=== PATIENT | male | born 1960 | race Caucasian/White ===

== ENCOUNTER 2016-11-01 09:23 | Emergency (ER) | payer MEDICAID, OTHER ==
[2016-11-01 09:45] VITALS: BP 146/84; PULSE 69; RESP 18; TEMP 97.7; O2SAT 98
--- NOTE | 2016-11-01 10:46 | C.PDOC ---
History Of Present Illness 56 y/o male presents to ED with complaints of right ear pain for 8 days. Patient also reports muffled hearing and reports limited relief with OTC ear drops. Patient denies recent swimming, fever, chills, n/v/d or any other complaints at this time. R EAR PAIN X 8 DAYS. MUFFLED HEARING. LIMITED RELIEF W OTC EAR DROPS. NO FEVER, RECENT SWIMMING OTHER ASSOC SX. EXAM NAD HEENT R EAR +CANAL SWELL W MIN LOCAL ERYTHEMA +CERUMEN IMPACT; L EAR MOD AMOUNT CERUMEN, CANAL WNL. TM WNL REMAINDER NEG Time Seen by Provider: 11/01/16 10:38 History Per: Patient History/Exam Limitations: None Onset/Duration Of Symptoms: Days Current Symptoms Are (Timing): Still Present Past Medical History Reviewed: Historical Data, Nursing Documentation, Vital Signs Vital Signs: Last Vital Signs Temp 97.7 F 11/01/16 09:30 Pulse 69 11/01/16 09:30 Resp 18 11/01/16 09:30 BP 146/84 11/01/16 09:30 Pulse Ox 98 11/01/16 11:16 - Medical History PMH: Diabetes (NIDDM), Gastritis, HTN, Hypercholesterolemia - [facility] Procedures CATARAC PHACOEMULS/ASPIR (10/10/14) DRAINAGE OF LEFT FOOT SKIN, EXTERNAL APPROACH (04/19/15) EXCISION OF L FOOT SUBCU/FASCIA, OPEN APPROACH (04/19/15) EXCISION OF LEFT FOOT SKIN, EXTERNAL APPROACH (04/19/15) EXCISION OF STOMACH, ENDO, DIAGN (04/19/15) INSERT LENS AT CATAR EXT (10/10/14) INSERTION OF INFUSION DEV INTO SUP VENA CAVA, PERC APPROACH (04/19/15) NONEXCIS DEBRID OF WOUND, INFECT, OR BURN (03/07/14) OTHER SKIN & SUBQ I D (03/07/14) Family History: States: No Known Family Hx - Social History Hx Tobacco Use: Yes Hx Alcohol Use: No Hx Substance Use: No - Immunization History Hx Tetanus Toxoid Vaccination: No Hx Influenza Vaccination: No Hx Pneumococcal Vaccination: No Review Of Systems Except As Marked, All Systems Reviewed And Found Negative. Constitutional: Negative for: Fever, Chills Gastrointestinal: Negative for: Nausea, Vomiting, Diarrhea Skin: Negative for: Rash Neurological: Negative for: Weakness, Numbness Physical Exam - Physical Exam Appears: No Acute Distress Skin: Normal Color, Warm, Dry, No Rash Head: Atraumatic, Normacephalic Eye(s): bilateral: Normal Inspection, EOMI Ear(s): Bilateral: Other (Right ear canal swelling w/minimal local erythema, + ceurmen impact; Left ear moderate amount cerumen, Canal and TM WNL ) Oral Mucosa: Moist Throat: Normal, No Erythema Neck: Normal ROM, Supple Cardiovascular: Rhythm Regular Respiratory: Normal Breath Sounds, No Rales, No Rhonchi, No Wheezing Gastrointestinal/Abdominal: Soft, No Tenderness, No Guarding, No Rebound Neurological/Psych: Oriented x3, Normal Speech, Normal Cognition, Normal Motor, Normal Sensation ED Course And Treatment O2 Sat by Pulse Oximetry: 98 (RA) Pulse Ox Interpretation: Normal Disposition Counseled Patient/Family Regarding: Diagnosis, Need For Followup, Rx Given - Disposition Referrals: [facility] [Outside] [facility] [Outside] Disposition: HOME/ ROUTINE Disposition Time: 10:45 Condition: IMPROVED Instructions: Otitis Externa (ED), Cerumen Impaction (ED) Forms: [employer] ([place]) Print Language: DANISH - Clinical Impression Clinical Impression: Otitis externa, Cerumen impaction - Scribe Statement The provider has reviewed the documentation as recorded by the Scribakanksha Calvo All medical record entries made by the Daisyibakanksha were at my direction and personally dictated by me. I have reviewed the chart and agree that the record accurately reflects my personal performance of the history, physical exam, medical decision making, and the department course for this patient. I have also personally directed, reviewed, and agree with the discharge instructions and disposition. Addendum Addendum: 11/01/16 11:17 pharmacy called pt has no insurance and unable to afford Rx given, medication changed to Neomycin and Hydrocortizone
== END 2016-11-01 10:48 | disposition home or self-care (01) ==
LOC: C.ER 09:23
DX: H60.91 Unspecified otitis externa, right ear (principal); H61.23 Impacted cerumen, bilateral

== ENCOUNTER 2017-03-07 17:58 | Inpatient (IN) | payer OTHER ==
[2017-03-07] MEDS ORDERED: Sodium Chloride 0.9% 1,000 ML IV STA (18:45)
--- NOTE | 2017-03-07 18:45 | C.PDOC ---
History Of Present Illness 57 y/o M c PMHx DM p/w vomiting and diarrhea x 1.5 days. Reports bright red blood per rectum with bowel movements. Reports epigastric abdominal pain, constant, severe, nonradiating. Denies fever, dyspnea, chest pain, dysuria. Time Seen by Provider: 03/07/17 18:26 Chief Complaint (Nursing): GI Problem Past Medical History Vital Signs: Last Vital Signs Temp 98.8 F 03/07/17 18:39 Pulse 97 H 03/07/17 18:52 Resp 18 03/07/17 18:52 BP 175/62 H 03/07/17 18:52 Pulse Ox 99 03/07/17 21:51 - Medical History PMH: Diabetes (NIDDM), Gastritis, HTN, Hypercholesterolemia Denies: Chronic Kidney Disease - [facility] Procedures CATARAC PHACOEMULS/ASPIR (10/10/14) DRAINAGE OF LEFT FOOT SKIN, EXTERNAL APPROACH (04/19/15) EXCISION OF L FOOT SUBCU/FASCIA, OPEN APPROACH (04/19/15) EXCISION OF LEFT FOOT SKIN, EXTERNAL APPROACH (04/19/15) EXCISION OF STOMACH, ENDO, DIAGN (04/19/15) INSERT LENS AT CATAR EXT (10/10/14) INSERTION OF INFUSION DEV INTO SUP VENA CAVA, PERC APPROACH (04/19/15) NONEXCIS DEBRID OF WOUND, INFECT, OR BURN (03/07/14) OTHER SKIN & SUBQ I D (03/07/14) Family History: States: No Known Family Hx - Social History Hx Tobacco Use: Yes Hx Alcohol Use: No Hx Substance Use: No - Immunization History Hx Tetanus Toxoid Vaccination: No Hx Influenza Vaccination: No Hx Pneumococcal Vaccination: No Review Of Systems Except As Marked, All Systems Reviewed And Found Negative. Constitutional: Negative for: Fever Cardiovascular: Negative for: Chest Pain Physical Exam - Physical Exam Additional Physical Exam Comments: Gen: Vomiting into bucket, appears uncomfortable. Head: Normocephalic, atraumatic. Eyes: PERRL. ENT: Moist mucous membranes. Neck: Supple. Chest: No tenderness. CV: Regular rate. Radial pulses 2+ bilaterally. Resp: Clear to auscultation bilaterally. Abd: Soft, nontender, nondistended. Rectal: Bright red blood mixed with brown stool. Extremities: No swelling or tenderness. Skin: No rash. Neuro: Alert, no focal deficit. ED Course And Treatment - Laboratory Results Result Diagrams: 03/07/17 18:58 03/07/17 18:58 O2 Sat by Pulse Oximetry: 99 Medical Decision Making Medical Decision Making: CXR Findings: No Acute Disease. CT Abdomen and Pelvis W/ Intravenous Contrast Results IMPRESSION: Acute descending colitis is present. Other incidental findings also noted, which are detailed above. EKG NSR 94 bpm, no ST/T wave changes. Started on antibiotics. Dr. Jiang accepts to hospitalist service. Disposition Discussed With : Graham Jiang Doctor Will See Patient In The: ED - Disposition Referrals: FAMILY PROVIDER,NO [Primary Care Provider] - Disposition: HOSPITALIZED Disposition Time: 21:56 Condition: GUARDED Forms: [facility] ([place]) - Clinical Impression Clinical Impression: Gastrointestinal hemorrhage, Acute colitis
[2017-03-07] MEDS ORDERED: Morphine 4 MG/ML VIAL ONE (18:59)
[2017-03-07] MEDS ORDERED: Sodium Chloride 0.9% 1,000 ML ONE (19:00)
[2017-03-07 19:03] LABS: BASO # 0.1 K/uL (0.0-0.2); BASO % 0.3 % (0.0-2.0); EOS # 0.1 K/uL (0.0-0.7); EOS % 0.3 % (0.0-4.0); HEMOGLOBIN 14.6 g/dL (12.0-18.0); LYMPH # 1.2 K/uL (1.0-4.3); MEAN CORPUSCULAR HGB CONC 33.7 g/dL (33.0-37.0); MONO # 0.6 K/uL (0.0-0.8); MONO % 3.4 % (0.0-10.0); NEUT # 15.7 K/uL (1.8-7.0); NRBC % 0.2 % (0.0-2.0); PLATELET COUNT 343 K/uL (130-400); RBC 4.86 Mil/uL (4.40-5.90); RED CELL DISTRIBUTION WIDTH 15.2 % (11.5-14.5); WHITE BLOOD COUNT 17.7 K/uL (4.8-10.8)
[2017-03-07 19:16] LABS: ALB/GLOB RATIO 1.3 (1.0-2.1); ALBUMIN 4.1 g/dL (3.5-5.0); ALT/SGPT 31 U/L (21-72); AST/SGOT 18 U/L (17-59); BLOOD UREA NITROGEN 27 mg/dL (9-20); CALCIUM 8.7 mg/dl (8.6-10.4); GFR AFRICAN-AMERICAN > 60; GFR NON-AFRICAN AMERICAN > 60; LIPASE 60 U/L (23-300)
[2017-03-07 19:44] LABS: PROTHROMBIN TIME 10.6 SECONDS (9.7-12.2)
[2017-03-07 20:18] LABS: BANDS 2 % (0-2); LYMPHOCYTE 3 % (20-40); MONOCYTE 2 % (0-10); NEUTROPHIL 89 % (50-75); PLATELET ESTIMATE NORMAL (NORMAL); REACTIVE LYMPHOCYTES 4 % (0-0); TOTAL CELLS COUNTED 100; TOXIC GRANULATION PRESENT
[2017-03-07] MEDS ORDERED: Iodixanol 320 MG/ML 100 ML BOTTLE IV ONE (21:25)
[2017-03-07] MEDS ORDERED: Ciprofloxacin 400mg/200ml D5W 400 MG/200 ML BAG IVPB STA (21:50)
[2017-03-07] MEDS ORDERED: metroNIDAZOLE IV 500 mg/100 ml 500 MG/100 ML BAG IVPB STA (21:50)
[2017-03-07] MEDS ORDERED: metroNIDAZOLE IV 500 mg/100 ml 500 MG/100 ML BAG ONE (22:00)
[2017-03-07 22:54] LABS: SQUAMOUS EPITHIAL 2 /hpf (0-5); URINE BACTERIA FEW (<OCC); URINE BILIRUBIN NEGATIVE (NEGATIVE); URINE BLOOD 1+ (NEGATIVE); URINE CLARITY Hazy (Clear); URINE COLOR Straw (YELLOW); URINE GLUCOSE (UA) 3+ mg/dL (Normal); URINE LEUKOCYTE ESTERASE 1+ Leu/uL (Negative); URINE NITRATE NEGATIVE (NEGATIVE); URINE PROTEIN 2+ mg/dL (NEGATIVE); URINE UROBILINOGEN NORMAL mg/dL (0.2-1.0)
[2017-03-07] MEDS: metroNIDAZOLE IV 500 mg/100 ml 500 MG/100 ML BAG IVPB SCH (23:50)
--- NOTE | 2017-03-08 00:18 | CP.PCM.HP ---
<Beny Ramos - Last Filed: 03/08/17 00:13> History of Present Illness - History of Present Illness History of Present Illness: Medicine H/P CC: Vomiting/Diarrhea/Abdominal Pain HPI: Patient is a 57M with a PMH of stroke, DM who comes to the ED with a 1 days history of vomiting and diarrhea. He is having blood in the diarrhea. No blood in the vomit. Ate chicken yesterday and then later that night had 4 episodes of diarrhea. Had 7 episodes of diarrhea today. Denies fever, chills, chest pain, SOB. Denies sick contacts, Denies recent travel. Everyone else who ate the chicken is currently not sick. Nothing makes it better or worse. He was currently vomiting in the ED when I saw him. ROS: Per HPI PMH: DM, Stroke PSH: L. leg surgery FH: unremarkable SH: Denies smoking, drinking, drugs All: none Present on Admission - Present on Admission Any Indicators Present on Admission: No Review of Systems - Review of Systems Review of Systems: per hpi Past Patient History - Infectious Disease Hx of Infectious Diseases: None - Tetanus Immunizations Tetanus Immunization: Unknown - Past Medical History & Family History Past Medical History?: Yes - Past Social History Smoking Status: Light Smoker < 10 Cigarettes Daily - CARDIAC Hx Hypercholesterolemia: Yes Hx Hypertension: Yes - PULMONARY Hx Respiratory Disorders: No - NEUROLOGICAL Hx Neurological Disorder: Yes Other/Comment: "brain bleed" - HEENT Hx HEENT Problems: Yes Hx Cataracts: Yes - RENAL Hx Chronic Kidney Disease: No - ENDOCRINE/METABOLIC Hx Diabetes Mellitus Type 2: Yes (diabetic neuropathy) - HEMATOLOGICAL/ONCOLOGICAL Hx Blood Disorders: No - INTEGUMENTARY Hx Dermatological Problems: Yes Other/Comment: LEFT GREAT TOE WITH HEALED DIABETIC ULCER ALL NAILS WITH ONCHYMYCOSIS - MUSCULOSKELETAL/RHEUMATOLOGICAL Hx Musculoskeletal Disorders: Yes Hx Falls: Yes Hx Osteomyelitis: Yes (LEFT FOOT) Other/Comment: DIABETIC NEUROPATHY - GASTROINTESTINAL Hx Gastritis: Yes - GENITOURINARY/GYNECOLOGICAL Hx Genitourinary Disorders: No - PSYCHIATRIC Hx Substance Use: No - SURGICAL HISTORY Hx Surgeries: Yes Hx Cataract Extraction: Yes - ANESTHESIA Hx Anesthesia: No Meds Allergies/Adverse Reactions: Allergies Allergy/AdvReac Type Severity Reaction Status Date / Time No Known Allergies Allergy Verified 03/07/17 18:25 Physical Exam - Constitutional Appears: Well, Non-toxic, No Acute Distress Additional comments: vomiting at bedside - Head Exam Head Exam: ATRAUMATIC, NORMAL INSPECTION, NORMOCEPHALIC - Eye Exam Eye Exam: EOMI Pupil Exam: NORMAL ACCOMODATION - ENT Exam ENT Exam: Mucous Membranes Dry - Respiratory Exam Respiratory Exam: Clear to Auscultation Bilateral, NORMAL BREATHING PATTERN - Cardiovascular Exam Cardiovascular Exam: REGULAR RHYTHM - GI/Abdominal Exam GI & Abdominal Exam: Normal Bowel Sounds, Soft. absent: Distended, Tenderness - Extremities Exam Extremities exam: Negative for: joint swelling, tenderness - Neurological Exam Neurological exam: Alert, Oriented x3 - Psychiatric Exam Psychiatric exam: Normal Affect, Normal Mood - Skin Skin Exam: Dry, Intact, Normal Color, Warm Results - Vital Signs Recent Vital Signs: Last Vital Signs Temp 98.1 F 03/07/17 22:30 Pulse 105 H 03/07/17 22:30 Resp 20 03/07/17 22:30 BP 147/79 03/07/17 22:30 Pulse Ox 99 03/07/17 22:30 - Labs Result Diagrams: 03/07/17 18:58 03/07/17 18:58 Labs: Laboratory Results - last 24 hr 03/07/17 03/07/17 03/07/17 18:45 18:58 18:58 WBC 17.7 H D RBC 4.86 Hgb 14.6 Hct 43.2 MCV 89.0 MCH 30.0 MCHC 33.7 RDW 15.2 H Plt Count 343 MPV 11.0 Neut % (Auto) 89.0 H Lymph % (Auto) 7.[address] [place] % (Auto) 3.4 Eos % (Auto) 0.3 Baso % (Auto) 0.3 Neut # 15.7 H Lymph # 1.2 [place] # 0.6 Eos # 0.1 Baso # 0.1 Neutrophils % (Manual) 89 H Band Neutrophils % 2 Lymphocytes % (Manual) 3 L Reactive Lymphs % 4 H Monocytes % (Manual) 2 Toxic Granulation Present Platelet Estimate Normal RBC Morphology Normal PT 10.6 INR 1.0 APTT 29 Sodium Potassium Chloride Carbon Dioxide Anion Gap BUN Creatinine Est GFR ( Amer) Est GFR (Non-Af Amer) Random Glucose Calcium Total Bilirubin AST ALT Alkaline Phosphatase Troponin I Total Protein Albumin Globulin Albumin/Globulin Ratio Lipase Urine Color Urine Clarity Urine pH Ur Specific [place] Urine Protein Urine Glucose (UA) Urine Ketones Urine Blood Urine Nitrate Urine Bilirubin Urine Urobilinogen Ur Leukocyte Esterase Urine WBC (Auto) Urine RBC (Auto) Ur Squamous Epith Cells Urine Bacteria Stool Occult Blood Positive H Blood Type Antibody Screen 03/07/17 03/07/17 03/07/17 18:58 18:58 22:49 WBC RBC Hgb Hct MCV MCH MCHC RDW Plt Count MPV Neut % (Auto) Lymph % (Auto) [place] % (Auto) Eos % (Auto) Baso % (Auto) Neut # Lymph # [place] # Eos # Baso # Neutrophils % (Manual) Band Neutrophils % Lymphocytes % (Manual) Reactive Lymphs % Monocytes % (Manual) Toxic Granulation Platelet Estimate RBC Morphology PT INR APTT Sodium 137 Potassium 4.0 Chloride 100 Carbon Dioxide 27 Anion Gap 13 BUN 27 H Creatinine 1.0 Est GFR ( Amer) > 60 Est GFR (Non-Af Amer) > 60 Random Glucose 188 H Calcium 8.7 Total Bilirubin 0.5 AST 18 ALT 31 Alkaline Phosphatase 82 Troponin I < 0.0120 Total Protein 7.3 Albumin 4.1 Globulin 3.2 Albumin/Globulin Ratio 1.3 Lipase 60 Urine Color Straw Urine Clarity Hazy Urine pH 6.0 Ur Specific [place] 1.029 Urine Protein 2+ H Urine Glucose (UA) 3+ H Urine Ketones Negative Urine Blood 1+ H Urine Nitrate Negative Urine Bilirubin Negative Urine Urobilinogen Normal Ur Leukocyte Esterase 1+ H Urine WBC (Auto) 10 H Urine RBC (Auto) 20 H Ur Squamous Epith Cells 2 Urine Bacteria Few H Stool Occult Blood Blood Type O POSITIVE Antibody Screen Negative Assessment & Plan (1) Acute colitis Assessment and Plan: Ischemic Vs Infectious colitis GI (Ty) F/U CT NPO Rocephin 1g IV QD Metro 500 IV Q8 Morphine 2 IV Q4 Zofran 4 IV Q6 NS @ 120 Protonix 40 IV QD Status: Acute Priority: High (2) Diabetes Assessment and Plan: accuchecks Lantus 20 SC HS Zestril 2.5 PO QD Crestor 5 PO HS Status: Chronic Priority: Medium <Graham Jiang P - Last Filed: 03/08/17 07:08> Results - Vital Signs Recent Vital Signs: Last Vital Signs Temp 98.6 F 03/08/17 04:10 Pulse 98 H 03/08/17 04:11 Resp 20 03/08/17 04:10 BP 128/69 03/08/17 04:10 Pulse Ox 96 03/08/17 04:10 - Labs Result Diagrams: 03/07/17 18:58 03/07/17 18:58 Labs: Laboratory Results - last 24 hr 03/07/17 03/07/17 03/07/17 18:45 18:58 18:58 WBC 17.7 H D RBC 4.86 Hgb 14.6 Hct 43.2 MCV 89.0 MCH 30.0 MCHC 33.7 RDW 15.2 H Plt Count 343 MPV 11.0 Neut % (Auto) 89.0 H Lymph % (Auto) 7.[address] [place] % (Auto) 3.4 Eos % (Auto) 0.3 Baso % (Auto) 0.3 Neut # 15.7 H Lymph # 1.2 [place] # 0.6 Eos # 0.1 Baso # 0.1 Neutrophils % (Manual) 89 H Band Neutrophils % 2 Lymphocytes % (Manual) 3 L Reactive Lymphs % 4 H Monocytes % (Manual) 2 Toxic Granulation Present Platelet Estimate Normal RBC Morphology Normal PT 10.6 INR 1.0 APTT 29 Sodium Potassium Chloride Carbon Dioxide Anion Gap BUN Creatinine Est GFR ( Amer) Est GFR (Non-Af Amer) Random Glucose Calcium Total Bilirubin AST ALT Alkaline Phosphatase Troponin I Total Protein Albumin Globulin Albumin/Globulin Ratio Lipase Urine Color Urine Clarity Urine pH Ur Specific [place] Urine Protein Urine Glucose (UA) Urine Ketones Urine Blood Urine Nitrate Urine Bilirubin Urine Urobilinogen Ur Leukocyte Esterase Urine WBC (Auto) Urine RBC (Auto) Ur Squamous Epith Cells Urine Bacteria Stool Occult Blood Positive H Blood Type Antibody Screen 03/07/17 03/07/17 03/07/17 18:58 18:58 22:49 WBC RBC Hgb Hct MCV MCH MCHC RDW Plt Count MPV Neut % (Auto) Lymph % (Auto) [place] % (Auto) Eos % (Auto) Baso % (Auto) Neut # Lymph # [place] # Eos # Baso # Neutrophils % (Manual) Band Neutrophils % Lymphocytes % (Manual) Reactive Lymphs % Monocytes % (Manual) Toxic Granulation Platelet Estimate RBC Morphology PT INR APTT Sodium 137 Potassium 4.0 Chloride 100 Carbon Dioxide 27 Anion Gap 13 BUN 27 H Creatinine 1.0 Est GFR ( Amer) > 60 Est GFR (Non-Af Amer) > 60 Random Glucose 188 H Calcium 8.7 Total Bilirubin 0.5 AST 18 ALT 31 Alkaline Phosphatase 82 Troponin I < 0.0120 Total Protein 7.3 Albumin 4.1 Globulin 3.2 Albumin/Globulin Ratio 1.3 Lipase 60 Urine Color Straw Urine Clarity Hazy Urine pH 6.0 Ur Specific [place] 1.029 Urine Protein 2+ H Urine Glucose (UA) 3+ H Urine Ketones Negative Urine Blood 1+ H Urine Nitrate Negative Urine Bilirubin Negative Urine Urobilinogen Normal Ur Leukocyte Esterase 1+ H Urine WBC (Auto) 10 H Urine RBC (Auto) 20 H Ur Squamous Epith Cells 2 Urine Bacteria Few H Stool Occult Blood Blood Type O POSITIVE Antibody Screen Negative Attending/Attestation - Attestation I have personally seen and examined this patient.: Yes I have fully participated in the care of the patient.: Yes I have reviewed all pertinent clinical information: Yes Notes (Text): Assessment * One day h/o loose stool then robinson blood, on ct thickened mucosa in distal transverse and descending colon suspicious for ischemic clolitis in water shed area vs infectious * IDDM * H/o CVA * H/o HTN Plan * Stool w/u * Empiric abx * GI consult * 1/2 dose insulin till npo, hold metformin * GI/DVT prophylaxis.
[2017-03-08] MEDS: Sodium Chloride 0.9% 1,000 ML IV SCH ×4 (01:10→20:05)
[2017-03-08] MEDS: metroNIDAZOLE IV 500 mg/100 ml 500 MG/100 ML BAG IVPB SCH ×3 (05:49→21:12)
--- NOTE | 2017-03-08 07:33 | RAD ---
HISTORY: vomiting COMPARISON: Chest radiograph 04/02/2016. FINDINGS: LUNGS: No active pulmonary disease. PLEURA: No significant pleural effusion identified, no pneumothorax apparent. CARDIOVASCULAR: Normal. OSSEOUS STRUCTURES: No significant abnormalities. VISUALIZED UPPER ABDOMEN: Normal. OTHER FINDINGS: None. IMPRESSION: No interval acute cardiopulmonary disease appreciated.
[2017-03-08 07:34] LABS: BASO % 0.3 % (0.0-2.0); LYMPH # 1.2 K/uL (1.0-4.3); MONO # 0.4 K/uL (0.0-0.8); RBC 4.15 Mil/uL (4.40-5.90)
[2017-03-08 07:43] LABS: HEMOGLOBIN 12.8 g/dL (12.0-18.0); LYMPH % 9.1 % (20.0-40.0); MEAN CELL VOLUME 89.3 fL (80.0-94.0); MEAN CORPUSCULAR HEMOGLOBIN 30.8 pg (27.0-31.0); MEAN CORPUSCULAR HGB CONC 34.5 g/dL (33.0-37.0); MEAN PLATELET VOLUME 10.6 fL (7.2-11.7); MONO % 3.1 % (0.0-10.0); NEUT # 11.5 K/uL (1.8-7.0); NEUT % 87.5 % (50.0-75.0); PLATELET COUNT 299 K/uL (130-400); RED CELL DISTRIBUTION WIDTH 15.2 % (11.5-14.5); WHITE BLOOD COUNT 13.2 K/uL (4.8-10.8)
[2017-03-08 08:42] LABS: ALB/GLOB RATIO 1.2 (1.0-2.1); ALBUMIN 3.4 g/dL (3.5-5.0); ALT/SGPT 30 U/L (21-72); AST/SGOT 28 U/L (17-59); BLOOD UREA NITROGEN 24 mg/dL (9-20); CALCIUM 7.7 mg/dl (8.6-10.4); GFR AFRICAN-AMERICAN > 60; GFR NON-AFRICAN AMERICAN > 60
[2017-03-08 08:44] LABS: TOTAL CELLS COUNTED 100
[2017-03-08 08:46] LABS: ANISOCYTOSIS SLIGHT; BANDS 5 % (0-2); LYMPHOCYTE 6 % (20-40); MONOCYTE 2 % (0-10); NEUTROPHIL 87 % (50-75); PLATELET ESTIMATE NORMAL (NORMAL)
[2017-03-08 08:47] LABS: POIKILOCYTOSIS SLIGHT
[2017-03-08 08:48] LABS: LARGE PLATELETS PRESENT; OVALOCYTES SLIGHT
--- NOTE | 2017-03-08 09:02 | CP.PCM.PN ---
<Sravan Fisher - Last Filed: 03/08/17 14:55> Subjective - Date & Time of Evaluation Date of Evaluation: 03/08/17 Time of Evaluation: 09:01 - Subjective Subjective: PGY1 Medicine Note for Dr. Nelson Patient seen and examined at bedside this morning. Patient's son was at bedside. The patient reports some mild abdominal discomfort. He states that the pain is much improved since coming to the hospital. He reports mild nausea but no vomiting. He states he has no problems with going to the bathroom and that was able to provide a stool sample. He has no complaints at this time. Objective - Vital Signs/Intake and Output Vital Signs (last 24 hours): Temp Pulse Resp BP Pulse Ox 97.9 F 97 H 20 118/64 96 03/08/17 07:53 03/08/17 08:00 03/08/17 07:53 03/08/17 07:53 03/08/17 07:53 Intake and Output: 03/08/17 03/08/17 06:59 18:59 Intake Total 680 Output Total 100 Balance 580 - Medications Medications: Current Medications Acetaminophen (Tylenol 325mg Tab) 650 mg PO Q6 PRN PRN Reason: Fever >100.4 F Aspirin (Aspirin Chewable) 81 mg PO DAILY [facility] Ceftriaxone Sodium 1 gm/ (Sodium Chloride) 100 mls @ 100 mls/hr IVPB DAILY [facility] Metronidazole (Flagyl) 500 mg in 100 mls @ 100 mls/hr IVPB Q8 [facility]IL[facility] Last Admin: 03/08/17 05:49 Dose: 100 mls/hr Sodium Chloride (Sodium Chloride 0.9%) 1,000 mls @ 120 mls/hr IV .Q8H20M [facility] Last Admin: 03/08/17 01:10 Dose: 120 mls/hr Potassium Chloride (Potassium Chloride 20 Meq/100 Ml) 20 meq in 100 mls @ 50 mls/hr IVPB ONCE ONE Stop: 03/08/17 10:58 Insulin Glargine (Lantus) 20 unit SC HS [facility] Lisinopril (Zestril) 2.5 mg PO DAILY [facility] Morphine Sulfate (Morphine) 2 mg IVP Q4H PRN PRN Reason: Pain, severe (8-10) Ondansetron HCl (Zofran Inj) 4 mg IVP Q6 PRN PRN Reason: Nausea/Vomiting Last Admin: 03/08/17 01:50 Dose: 4 mg Pantoprazole Sodium (Protonix Inj) 40 mg IVP DAILY [facility] Rosuvastatin Calcium (Crestor) 5 mg PO HS ANA LILIA - Labs Labs: 03/08/17 07:17 03/08/17 07:17 PT 10.6 SECONDS (9.7-12.2) 03/07/17 18:58 INR 1.0 03/07/17 18:58 APTT 29 SECONDS (21-34) 03/07/17 18:58 - Constitutional Appears: Non-toxic, No Acute Distress - Head Exam Head Exam: ATRAUMATIC, NORMOCEPHALIC - Eye Exam Eye Exam: EOMI, Normal appearance - ENT Exam ENT Exam: Mucous Membranes Moist - Neck Exam Neck Exam: Full ROM - Respiratory Exam Respiratory Exam: Clear to Ausculation Bilateral, NORMAL BREATHING PATTERN. absent: Accessory Muscle Use, Rales, Rhonchi, Wheezes, Respiratory Distress - Cardiovascular Exam Cardiovascular Exam: REGULAR RHYTHM, +S1 - GI/Abdominal Exam GI & Abdominal Exam: Soft, Tenderness (greatest in LLQ but diffuse.), Normal Bowel Sounds. absent: Distended, Firm, Guarding, Rigid - Extremities Exam Extremities Exam: Normal Inspection. absent: Calf Tenderness, Pedal Edema - Neurological Exam Neurological Exam: Alert, Awake, Oriented x3 - Psychiatric Exam Psychiatric exam: Normal Affect, Normal Mood - Skin Skin Exam: Dry, Warm Assessment and Plan - Assessment and Plan (Free Text) Plan: Acute colitis Ischemic Vs Infectious colitis GI consulted, Dr. Crawford, help appreciated CT Abd/Pelvis w/ IV contrast 03/07/17 - Interval pattern suggest segmental colitis potentially affecting the splenic flexure through distal sigmoid segments without evidence of bowel perforation at this time. Consider infectious or inflammatory causes. Neoplasm and ischemia are occluded differential diagnosis though the pattern does not suggest either of these. Further clinical correlation is advised. WBC 13.2 on 03/08 (from 17.7 on 03/07) * Bands 5 on 03/08 (from 2 on 03/07) NPO - except meds Rocephin 1g IV QD Metro 500mg IV Q8h Morphine 2 IV Q4h Zofran 4 IV Q6h NS @ 150 mL/hr Protonix 40 IV QD Procal - <0.05 Lipase 60 Stool Occult Blood positive C. Diff neg f/u stool studies Diabetes accuchecks Lantus 20 SC HS Lisinoprilil 2.5 PO QD Crestor 5 PO HS Prophylactic Care DVT Potassium repleted Case discussed with Dr. Leslie Hinson Natalia PGY1 <Rogerio Nelson H - Last Filed: 03/08/17 15:31> Objective - Vital Signs/Intake and Output Vital Signs (last 24 hours): Temp Pulse Resp BP Pulse Ox 97.9 F 97 H 20 118/64 96 03/08/17 07:53 03/08/17 08:00 03/08/17 07:53 03/08/17 07:53 03/08/17 07:53 Intake and Output: 03/08/17 03/08/17 06:59 18:59 Intake Total 680 Output Total 100 Balance 580 - Medications Medications: Current Medications Acetaminophen (Tylenol 325mg Tab) 650 mg PO Q6 PRN PRN Reason: Fever >100.4 F Aspirin (Aspirin Chewable) 81 mg PO DAILY [facility] Last Admin: 03/08/17 10:25 Dose: 81 mg Ceftriaxone Sodium 1 gm/ (Sodium Chloride) 100 mls @ 100 mls/hr IVPB DAILY [facility] Last Admin: 03/08/17 09:00 Dose: 100 mls/hr Metronidazole (Flagyl) 500 mg in 100 mls @ 100 mls/hr IVPB Q8 [facility] Last Admin: 03/08/17 14:36 Dose: 100 mls/hr Sodium Chloride (Sodium Chloride 0.9%) 1,000 mls @ 150 mls/hr IV .Q6H40M [facility] Last Admin: 03/08/17 14:37 Dose: 150 mls/hr Insulin Glargine (Lantus) 20 unit SC HS [facility] Lisinopril (Zestril) 2.5 mg PO DAILY [facility] Last Admin: 03/08/17 10:25 Dose: 2.5 mg Morphine Sulfate (Morphine) 2 mg IVP Q4H PRN PRN Reason: Pain, severe (8-10) Ondansetron HCl (Zofran Inj) 4 mg IVP Q6 PRN PRN Reason: Nausea/Vomiting Last Admin: 03/08/17 01:50 Dose: 4 mg Pantoprazole Sodium (Protonix Inj) 40 mg IVP DAILY [facility] Last Admin: 03/08/17 10:25 Dose: 40 mg Rosuvastatin Calcium (Crestor) 5 mg PO HS ANA LILIA - Labs Labs: 03/08/17 07:17 03/08/17 07:17 PT 10.6 SECONDS (9.7-12.2) 03/07/17 18:58 INR 1.0 03/07/17 18:58 APTT 29 SECONDS (21-34) 03/07/17 18:58 Attending/Attestation - Attestation I have personally seen and examined this patient.: Yes I have fully participated in the care of the patient.: Yes I have reviewed all pertinent clinical information, including history, physical exam and plan: Yes Notes (Text): 03/08/17 15:31 Medical attending: Patient was seen and examined by me, reviewed the above note by medical assistant prn and agree. The patient had family members in the room. The patient was okay with this as we discussed. The patient reported that he was feeling a lot better he said that the pain was very minimal at this time. It is still present in the morning he said it was isolated to his left lower quadrant.TheCTscan suggested colitis.When he initially came in The white blood cell count was 17, with IV antibiotics it's now decreased to 13. Were still waiting on cultures at this time. Possibly tomorrow if he feels okay we might advance his diet after we see how he 's been doing Thank you very much, Rogerio Nelson
--- NOTE | 2017-03-08 09:58 | CT ---
PROCEDURE: CT Abdomen and Pelvis with contrast HISTORY: ABD PAIN, GI BLEED, VOMITING COMPARISON: None. TECHNIQUE: Contrast dose: Visipaque 320, 100 cc Radiation dose: Total exam DLP = 445.63 mGy-cm. This CT exam was performed using one or more of the following dose reduction techniques: Automated exposure control, adjustment of the mA and/or kV according to patient size, and/or use of iterative reconstruction technique. FINDINGS: LOWER THORAX: Unremarkable. LIVER: Unremarkable. No gross lesion or ductal dilatation. GALLBLADDER AND BILE DUCTS: Unremarkable. PANCREAS: Unremarkable. No gross lesion or ductal dilatation. SPLEEN: Unremarkable. ADRENALS: Unremarkable. No mass. KIDNEYS AND URETERS: Unremarkable. No hydronephrosis. No solid mass. VASCULATURE: Unremarkable. No aortic aneurysm. BOWEL: No bowel obstruction is appreciated however the large bowel appears abnormal at the left hemicolon in particular potentially extending all the way back to hepatic flexure. Mucosal enhancement and submucosal edema is appreciated seen worst at the descending through sigmoid colon segments but likely also present more proximally up to the level of the hepatic flexure. Is difficult to evaluate large-bowel due lack of oral contrast. Also this segment of large bowel appears largely collapsed. No pericolic reaction or fluid collection related. No apparent free intraperitoneal gas. Small bowel is unremarkable as imaged. APPENDIX: Normal appendix. PERITONEUM: Unremarkable. No free fluid. No free air. LYMPH NODES: Unremarkable. No enlarged lymph nodes. BLADDER: Unremarkable. REPRODUCTIVE: Unremarkable. BONES: No acute fracture. OTHER FINDINGS: None. IMPRESSION: Interval pattern suggest segmental colitis potentially affecting the splenic flexure through distal sigmoid segments without evidence of bowel perforation at this time. Consider infectious or inflammatory causes. Neoplasm and ischemia are occluded differential diagnosis though the pattern does not suggest either of these. Further clinical correlation is advised. Concordant preliminary report from [facility], 03/07/2017.
[2017-03-08] MEDS ORDERED: Pantoprazole 40 mg EC Tab PO SCH (10:00)
[2017-03-08 14:48] LABS: C DIFF TOXIN A B NEGATIVE (NEGATIVE)
[2017-03-08 15:10] LABS: FECAL LEUKOCYTES NEGATIVE (NEGATIVE)
[2017-03-08] MEDS ORDERED: (Lantus) Insulin Glargine, Recombinant SC SCH (22:00)
--- NOTE | 2017-03-08 22:18 | CARD ---
APPROVED REPORT EKG Measurement Heart [id number] <Conclusion> Normal sinus rhythm Normal ECG
[2017-03-09] MEDS: Sodium Chloride 0.9% 1,000 ML IV SCH ×5 (00:09→21:27)
[2017-03-09] MEDS: metroNIDAZOLE IV 500 mg/100 ml 500 MG/100 ML BAG IVPB SCH ×3 (05:36→21:58)
[2017-03-09 08:44] LABS: BASO % 0.4 % (0.0-2.0); LYMPH # 0.9 K/uL (1.0-4.3); LYMPH % 7.5 % (20.0-40.0); MEAN CORPUSCULAR HEMOGLOBIN 30.4 pg (27.0-31.0); MEAN CORPUSCULAR HGB CONC 34.2 g/dL (33.0-37.0); MONO # 0.2 K/uL (0.0-0.8); MONO % 1.9 % (0.0-10.0); NEUT # 10.9 K/uL (1.8-7.0); NEUT % 90.2 % (50.0-75.0); PLATELET COUNT 289 K/uL (130-400); RBC 4.59 Mil/uL (4.40-5.90); RED CELL DISTRIBUTION WIDTH 15.1 % (11.5-14.5); WHITE BLOOD COUNT 12.1 K/uL (4.8-10.8)
[2017-03-09 09:05] LABS: LARGE PLATELETS PRESENT; LYMPHOCYTE 6 % (20-40); MONOCYTE 1 % (0-10); NEUTROPHIL 93 % (50-75); PLATELET ESTIMATE NORMAL (NORMAL); TOTAL CELLS COUNTED 100
[2017-03-09 09:13] LABS: ALB/GLOB RATIO 1.3 (1.0-2.1); ALBUMIN 3.8 g/dL (3.5-5.0); ALT/SGPT 40 U/L (21-72); AST/SGOT 50 U/L (17-59); BLOOD UREA NITROGEN 14 mg/dL (9-20); CALCIUM 7.4 mg/dl (8.6-10.4); GFR AFRICAN-AMERICAN > 60; GFR NON-AFRICAN AMERICAN > 60
--- NOTE | 2017-03-09 11:30 | CP.PCM.PN ---
<Sravan Fisher - Last Filed: 03/09/17 11:17> Subjective - Date & Time of Evaluation Date of Evaluation: 03/09/17 Time of Evaluation: 11:17 - Subjective Subjective: PGY1 Medicine Note for Dr. Nelson Patient seen and examined at bedside this morning. Report was given that patient was vomiting and dry heaving throughout the night. Upon walking into the room, the patient was just given zofran and morphine. He stated his abdomen was moderately sore/tired from vomiting all night. He quickly fell asleep soon after. He was allowed to sleep for the remainder of the exam as he did not sleep throughout the night. The remainder of ROS was unattainable. Objective - Vital Signs/Intake and Output Vital Signs (last 24 hours): Temp Pulse Resp BP Pulse Ox 98.1 F 92 H 20 188/89 H 93 L 03/09/17 08:05 03/09/17 08:05 03/09/17 08:05 03/09/17 08:05 03/09/17 08:05 Intake and Output: 03/09/17 03/09/17 06:59 18:59 Intake Total 1300 Balance 1300 - Medications Medications: Current Medications Acetaminophen (Tylenol 325mg Tab) 650 mg PO Q6 PRN PRN Reason: Fever >100.4 F Aspirin (Aspirin Chewable) 81 mg PO DAILY [facility] Last Admin: 03/09/17 11:01 Dose: 81 mg Ceftriaxone Sodium 1 gm/ (Sodium Chloride) 100 mls @ 100 mls/hr IVPB DAILY [facility] Last Admin: 03/09/17 11:00 Dose: 100 mls/hr Metronidazole (Flagyl) 500 mg in 100 mls @ 100 mls/hr IVPB Q8 [facility] Last Admin: 03/09/17 05:36 Dose: 100 mls/hr Potassium Chloride 20 meq/ (Sodium Chloride) 110 mls @ 50 mls/hr IV Q2H [facility] Stop: 03/09/17 15:29 Sodium Chloride (Sodium Chloride 0.9%) 1,000 mls @ 100 mls/hr IV .Q10H [facility] Insulin Glargine (Lantus) 20 unit SC HS [facility] Lisinopril (Zestril) 2.5 mg PO DAILY [facility] Last Admin: 03/09/17 11:01 Dose: 2.5 mg Morphine Sulfate (Morphine) 2 mg IVP Q4H PRN PRN Reason: Pain, severe (8-10) Last Admin: 03/09/17 06:55 Dose: 2 mg Ondansetron HCl (Zofran Inj) 4 mg IVP Q6 PRN PRN Reason: Nausea/Vomiting Last Admin: 03/09/17 06:53 Dose: 4 mg Pantoprazole Sodium (Protonix Inj) 40 mg IVP DAILY [facility] Last Admin: 03/09/17 11:00 Dose: 40 mg Rosuvastatin Calcium (Crestor) 5 mg PO HS [facility] Last Admin: 03/08/17 21:12 Dose: 5 mg - Labs Labs: 03/09/17 08:31 03/09/17 08:31 PT 10.6 SECONDS (9.7-12.2) 03/07/17 18:58 INR 1.0 03/07/17 18:58 APTT 29 SECONDS (21-34) 03/07/17 18:58 - Constitutional Appears: Other (Tired) - Head Exam Head Exam: ATRAUMATIC, NORMOCEPHALIC - Eye Exam Eye Exam: EOMI, Normal appearance - ENT Exam ENT Exam: Mucous Membranes Moist - Respiratory Exam Respiratory Exam: Clear to Ausculation Bilateral, NORMAL BREATHING PATTERN. absent: Accessory Muscle Use, Rales, Wheezes, Respiratory Distress - Cardiovascular Exam Cardiovascular Exam: REGULAR RHYTHM, +S1 - GI/Abdominal Exam GI & Abdominal Exam: Soft, Normal Bowel Sounds. absent: Distended, Firm, Guarding, Rigid Additional comments: unable to assess tenderness as patient fell asleep - Extremities Exam Extremities Exam: Normal Inspection - Neurological Exam Neurological Exam: Altered (recently given morphine, quickly fell asleep) - Skin Skin Exam: Dry, Warm Assessment and Plan - Assessment and Plan (Free Text) Plan: Acute colitis Ischemic Vs Infectious colitis GI consulted, Dr. Crawford, help appreciated CT Abd/Pelvis w/ IV contrast 03/07/17 - Interval pattern suggest segmental colitis potentially affecting the splenic flexure through distal sigmoid segments without evidence of bowel perforation at this time. Consider infectious or inflammatory causes. Neoplasm and ischemia are occluded differential diagnosis though the pattern does not suggest either of these. Further clinical correlation is advised. WBC 12.1 on 02/27 (from 17.7 on 03/07) * Bands 0 on 03/09; (5 on 03/08, 2 on 03/07) NPO - except meds Rocephin 1g IV QD Metro 500mg IV Q8h Morphine 2 IV Q4h Zofran 4 IV Q6h - given Reglan 10mg IV once, worked very well. - given promethazine 25mg IM once overnight, no improvement NS @ 150 mL/hr - decreased to 100mL/hr due to elevated BP - Hydralazine 10mg IV given once Protonix 40 IV QD Procal - <0.05 Lipase 60 Stool Occult Blood positive C. Diff neg f/u stool studies Diabetes accuchecks Lantus 20 SC HS Lisinoprilil 2.5 PO QD Crestor 5 PO HS Prophylactic Care DVT Potassium repleted Case discussed with Dr. Leslie Fisher PGY1 <Rogerio Nelson - Last Filed: 03/09/17 15:04> Objective - Vital Signs/Intake and Output Vital Signs (last 24 hours): Temp Pulse Resp BP Pulse Ox 99.2 F 87 20 120/67 98 03/09/17 12:02 03/09/17 13:57 03/09/17 13:57 03/09/17 13:57 03/09/17 13:57 Intake and Output: 03/09/17 03/09/17 06:59 18:59 Intake Total 1300 Balance 1300 - Medications Medications: Current Medications Acetaminophen (Tylenol 325mg Tab) 650 mg PO Q6 PRN PRN Reason: Fever >100.4 F Aspirin (Aspirin Chewable) 81 mg PO DAILY [facility] Last Admin: 03/09/17 11:01 Dose: 81 mg Ceftriaxone Sodium 1 gm/ (Sodium Chloride) 100 mls @ 100 mls/hr IVPB DAILY [facility] Last Admin: 03/09/17 11:00 Dose: 100 mls/hr Metronidazole (Flagyl) 500 mg in 100 mls @ 100 mls/hr IVPB Q8 [facility] Last Admin: 03/09/17 14:44 Dose: 100 mls/hr Potassium Chloride 20 meq/ (Sodium Chloride) 110 mls @ 50 mls/hr IV Q2H [facility] Stop: 03/09/17 15:29 Last Admin: 03/09/17 13:07 Dose: 50 mls/hr Sodium Chloride (Sodium Chloride 0.9%) 1,000 mls @ 100 mls/hr IV .Q10H [facility] Last Admin: 03/09/17 11:44 Dose: 100 mls/hr Insulin Glargine (Lantus) 20 unit SC HS [facility] Lisinopril (Zestril) 2.5 mg PO DAILY [facility] Last Admin: 03/09/17 11:01 Dose: 2.5 mg Morphine Sulfate (Morphine) 2 mg IVP Q4H PRN PRN Reason: Pain, severe (8-10) Last Admin: 03/09/17 06:55 Dose: 2 mg Ondansetron HCl (Zofran Inj) 4 mg IVP Q6 PRN PRN Reason: Nausea/Vomiting Last Admin: 03/09/17 06:53 Dose: 4 mg Pantoprazole Sodium (Protonix Inj) 40 mg IVP DAILY [facility] Last Admin: 03/09/17 11:00 Dose: 40 mg Rosuvastatin Calcium (Crestor) 5 mg PO HS [facility] Last Admin: 03/08/17 21:12 Dose: 5 mg - Labs Labs: 03/09/17 08:31 03/09/17 08:31 PT 10.6 SECONDS (9.7-12.2) 03/07/17 18:58 INR 1.0 03/07/17 18:58 APTT 29 SECONDS (21-34) 03/07/17 18:58 Attending/Attestation - Attestation I have personally seen and examined this patient.: Yes I have fully participated in the care of the patient.: Yes I have reviewed all pertinent clinical information, including history, physical exam and plan: Yes Notes (Text): 03/09/17 15:04 Medical attending: Patient was seen and examined by me, agrees the above note by medical physics professor. When we saw the patient patient's family member was present in the room as well. The patient was okay with this. On been told that overnight she had a lot of nausea and vomiting. He received some IV Reglan and this helped substantially. By the time we saw him in the morning he was asleep easily woke up and was talking to us. He was still having abdominal pain today. His white blood cell count has decreased from yesterday, is now down to 12. At this moment will continue with IV antibiotics. Blood cultures have been negative for 24 hours. We'll consider advancing the diet tomorrow thank you Rogerio Nelson
[2017-03-10] MEDS: metroNIDAZOLE IV 500 mg/100 ml 500 MG/100 ML BAG IVPB SCH ×3 (05:39→21:30)
--- NOTE | 2017-03-10 06:54 | CP.PCM.PN ---
<Sravan Fisher - Last Filed: 03/10/17 13:36> Subjective - Date & Time of Evaluation Date of Evaluation: 03/10/17 Time of Evaluation: 06:54 - Subjective Subjective: PGY1 Medicine Note for Dr. Nelson Patient seen and examined at bedside this morning. Patient was resting comfortably and stated he had a great night. He was able to sleep and has no experienced any pain, nausea or vomiting. One hour later, Nurse Tony called Resident Natalia to inform him that patient David was vomiting again. Patient was given Reglan. His vomiting improved. He denies any bowel movements today. Objective - Vital Signs/Intake and Output Vital Signs (last 24 hours): Temp Pulse Resp BP Pulse Ox 98.5 F 78 20 154/80 H 95 03/10/17 00:10 03/10/17 00:10 03/10/17 00:10 03/10/17 00:10 03/10/17 00:10 Intake and Output: 03/09/17 03/10/17 18:59 06:59 Intake Total 780 680 Balance 780 680 - Medications Medications: Current Medications Acetaminophen (Tylenol 325mg Tab) 650 mg PO Q6 PRN PRN Reason: Fever >100.4 F Aspirin (Aspirin Chewable) 81 mg PO DAILY [facility] Last Admin: 03/09/17 11:01 Dose: 81 mg Ceftriaxone Sodium 1 gm/ (Sodium Chloride) 100 mls @ 100 mls/hr IVPB DAILY [facility] Last Admin: 03/09/17 11:00 Dose: 100 mls/hr Metronidazole (Flagyl) 500 mg in 100 mls @ 100 mls/hr IVPB Q8 [facility] Last Admin: 03/10/17 05:39 Dose: 100 mls/hr Sodium Chloride (Sodium Chloride 0.9%) 1,000 mls @ 100 mls/hr IV .Q10H [facility] Last Admin: 03/09/17 21:27 Dose: 100 mls/hr Insulin Glargine (Lantus) 20 unit SC [facility] Lisinopril (Zestril) 2.5 mg PO DAILY [facility] Last Admin: 03/09/17 11:01 Dose: 2.5 mg Morphine Sulfate (Morphine) 2 mg IVP Q4H PRN PRN Reason: Pain, severe (8-10) Last Admin: 03/09/17 06:55 Dose: 2 mg Ondansetron HCl (Zofran Inj) 4 mg IVP Q6 PRN PRN Reason: Nausea/Vomiting Last Admin: 03/09/17 06:53 Dose: 4 mg Pantoprazole Sodium (Protonix Inj) 40 mg IVP DAILY [facility] Last Admin: 03/09/17 11:00 Dose: 40 mg Rosuvastatin Calcium (Crestor) 5 mg PO HS [facility] Last Admin: 03/09/17 21:29 Dose: 5 mg - Labs Labs: 03/09/17 08:31 03/09/17 08:31 PT 10.6 SECONDS (9.7-12.2) 03/07/17 18:58 INR 1.0 03/07/17 18:58 APTT 29 SECONDS (21-34) 03/07/17 18:58 - Constitutional Appears: Non-toxic, No Acute Distress - Head Exam Head Exam: ATRAUMATIC, NORMOCEPHALIC - Eye Exam Eye Exam: EOMI, Normal appearance, PERRL - ENT Exam ENT Exam: Mucous Membranes Moist - Respiratory Exam Respiratory Exam: Clear to Ausculation Bilateral, NORMAL BREATHING PATTERN. absent: Accessory Muscle Use, Rales, Rhonchi, Wheezes, Respiratory Distress - Cardiovascular Exam Cardiovascular Exam: REGULAR RHYTHM, +S1 - GI/Abdominal Exam GI & Abdominal Exam: Soft, Tenderness (left sided), Normal Bowel Sounds. absent : Distended, Firm, Rigid Additional comments: actively dry heaving. - Extremities Exam Extremities Exam: absent: Calf Tenderness, Pedal Edema - Neurological Exam Neurological Exam: Alert, Awake, Oriented x3 - Psychiatric Exam Psychiatric exam: Normal Affect, Normal Mood - Skin Skin Exam: Dry, Warm Assessment and Plan - Assessment and Plan (Free Text) Plan: Acute colitis Ischemic Vs Infectious colitis GI consulted, Dr. Crawford, help appreciated CT Abd/Pelvis w/ IV contrast 03/07/17 - Interval pattern suggest segmental colitis potentially affecting the splenic flexure through distal sigmoid segments without evidence of bowel perforation at this time. Consider infectious or inflammatory causes. Neoplasm and ischemia are occluded differential diagnosis though the pattern does not suggest either of these. Further clinical correlation is advised. WBC 9.1 clear liquid diet Rocephin 1g IV QD Metro 500mg IV Q8h Morphine 2 IV Q4h Zofran 4 IV Q6h - given Reglan 10mg IV once, works very well for patient. NS @ 100 mL/hr - decreased to 50mL/hr Protonix 40 IV QD Procal - <0.05 Lipase 60 Stool Occult Blood positive Stool Leuk negative C. Diff neg Giardia neg Stool Culture - no salmonella, shigella or campylobacter Urine - multiple species, suggest specimen Blood cultures negative at 48 hours Diabetes accuchecks Lantus 20 SC HS Lisinoprilil 2.5 PO QD Crestor 5 PO HS Prophylactic Care DVT Potassium repleted Case discussed with Dr. Leslie Hinson Natalia PGY1 <Rogerio Nelson H - Last Filed: 03/10/17 14:00> Objective - Vital Signs/Intake and Output Vital Signs (last 24 hours): Temp Pulse Resp BP Pulse Ox 98.2 F 72 18 164/79 H 98 03/10/17 07:38 03/10/17 07:38 03/10/17 07:38 03/10/17 07:38 03/10/17 07:38 Intake and Output: 03/10/17 03/10/17 06:59 18:59 Intake Total 680 Balance 680 - Medications Medications: Current Medications Acetaminophen (Tylenol 325mg Tab) 650 mg PO Q6 PRN PRN Reason: Fever >100.4 F Aspirin (Aspirin Chewable) 81 mg PO DAILY [facility] Last Admin: 03/10/17 10:09 Dose: 81 mg Ceftriaxone Sodium 1 gm/ (Sodium Chloride) 100 mls @ 100 mls/hr IVPB DAILY [facility] Last Admin: 03/10/17 10:09 Dose: 100 mls/hr Metronidazole (Flagyl) 500 mg in 100 mls @ 100 mls/hr IVPB Q8 [facility] Last Admin: 03/10/17 13:17 Dose: 100 mls/hr Sodium Chloride (Sodium Chloride 0.9%) 1,000 mls @ 50 mls/hr IV .Q20H [facility] Last Admin: 03/10/17 12:05 Dose: 50 mls/hr Insulin Glargine (Lantus) 20 unit SC HS [facility] Lisinopril (Zestril) 2.5 mg PO DAILY [facility] Last Admin: 03/10/17 10:09 Dose: 2.5 mg Morphine Sulfate (Morphine) 2 mg IVP Q4H PRN PRN Reason: Pain, severe (8-10) Last Admin: 03/10/17 13:27 Dose: 2 mg Ondansetron HCl (Zofran Inj) 4 mg IVP Q6 PRN PRN Reason: Nausea/Vomiting Last Admin: 03/10/17 11:02 Dose: 4 mg Pantoprazole Sodium (Protonix Inj) 40 mg IVP DAILY [facility] Last Admin: 03/10/17 10:09 Dose: 40 mg Rosuvastatin Calcium (Crestor) 5 mg PO HS [facility] Last Admin: 03/09/17 21:29 Dose: 5 mg - Labs Labs: 03/10/17 07:30 03/10/17 07:30 PT 10.6 SECONDS (9.7-12.2) 03/07/17 18:58 INR 1.0 03/07/17 18:58 APTT 29 SECONDS (21-34) 03/07/17 18:58 Attending/Attestation - Attestation I have personally seen and examined this patient.: Yes I have fully participated in the care of the patient.: Yes I have reviewed all pertinent clinical information, including history, physical exam and plan: Yes Notes (Text): 03/10/17 13:58 Medical Attending: Patient was seen and examined by me as well. Agree with the above note The patient seems to have done well overnight and then did well in the morning. However just before I walked into the room had a bout of nausea and vommtting. Lab work shows WBC has now decreased to normal range. So will try CLD for now and see how he does He remains on IVF as well as IV abx thank you Rogerio Nelson
[2017-03-10 08:02] LABS: BASO % 0.5 % (0.0-2.0); EOS # 0.2 K/uL (0.0-0.7); EOS % 1.7 % (0.0-4.0); HEMOGLOBIN 13.2 g/dL (12.0-18.0); LYMPH # 1.9 K/uL (1.0-4.3); MEAN CELL VOLUME 90.5 fL (80.0-94.0); MEAN CORPUSCULAR HEMOGLOBIN 31.2 pg (27.0-31.0); MEAN CORPUSCULAR HGB CONC 34.4 g/dL (33.0-37.0); MEAN PLATELET VOLUME 10.6 fL (7.2-11.7); MONO # 0.8 K/uL (0.0-0.8); NEUT # 6.2 K/uL (1.8-7.0); NEUT % 67.8 % (50.0-75.0); RBC 4.25 Mil/uL (4.40-5.90); RED CELL DISTRIBUTION WIDTH 14.8 % (11.5-14.5); WHITE BLOOD COUNT 9.1 K/uL (4.8-10.8)
[2017-03-10 09:00] LABS: ALB/GLOB RATIO 1.1 (1.0-2.1); ALT/SGPT 30 U/L (21-72); AST/SGOT 24 U/L (17-59); BLOOD UREA NITROGEN 20 mg/dL (9-20); CALCIUM 7.1 mg/dl (8.6-10.4); GFR AFRICAN-AMERICAN > 60; GFR NON-AFRICAN AMERICAN > 60
[2017-03-10] MEDS: Sodium Chloride 0.9% 1,000 ML IV SCH ×2 (10:09→12:05)
--- NOTE | 2017-03-10 13:15 | CON ---
DATE: 03/10/2017 LOCATION: 7, bed A. HISTORY OF PRESENT ILLNESS: This 57-year-old male was admitted to the hospital initially with main complaint of abdominal pain, was found to have abnormal CAT scan of the abdomen indicative of possible left-sided colitis. Claiming that he had rectal bleeding prior to his admission with epigastric pain. Most recent lab results showed normal hemoglobin and hematocrit with today's CBC is normal with hemoglobin of 13.2, hematocrit 38.4, with blood glucose level of 155. Patient has been on antibiotics. PHYSICAL EXAMINATION: VITAL SIGNS: Patient is afebrile, with pulse of 70,respiratory rate 20 to 22, with blood pressure 160/72. HEENT: Within normal limit. HEART: Positive S1 and S2. ABDOMEN: Soft, with mild generalized tenderness. No mass or organomegaly. No rebound tenderness or guarding. EXTREMITIES: Without edema, clubbing, or cyanosis. IMPRESSION: 1. Left-sided colitis. 2. Known history of hypertension, peptic ulcer disease, with hyperlipidemia as well as diabetes mellitus. 3. Patient is stable clinically with stable hemoglobin and hematocrit, with basically normal CBC with elevated blood glucose level. SUGGESTIONS: 1. Agree with your plan. 2. Barium enema, double contrast. 3. Cancer markers. 4. Further recommendation to follow. 5. Should the patient have any further complaint, then colonoscopy is to be done as outpatient pending the outcome of the barium enema. We will follow up only with you [email or web address]. Elpidio Dickerson MD
[2017-03-11] MEDS: metroNIDAZOLE IV 500 mg/100 ml 500 MG/100 ML BAG IVPB SCH (06:04)
[2017-03-11 08:39] LABS: BASO % 0.4 % (0.0-2.0); EOS % 0.4 % (0.0-4.0); HEMOGLOBIN 13.5 g/dL (12.0-18.0); LYMPH # 1.7 K/uL (1.0-4.3); LYMPH % 17.6 % (20.0-40.0); MEAN CORPUSCULAR HEMOGLOBIN 31.2 pg (27.0-31.0); MEAN CORPUSCULAR HGB CONC 35.1 g/dL (33.0-37.0); MEAN PLATELET VOLUME 10.7 fL (7.2-11.7); MONO % 10.8 % (0.0-10.0); NEUT # 6.7 K/uL (1.8-7.0); NEUT % 70.8 % (50.0-75.0); RBC 4.31 Mil/uL (4.40-5.90); RED CELL DISTRIBUTION WIDTH 14.7 % (11.5-14.5); WHITE BLOOD COUNT 9.5 K/uL (4.8-10.8)
[2017-03-11 08:49] LABS: ALBUMIN 3.3 g/dL (3.5-5.0); ALT/SGPT 31 U/L (21-72); AST/SGOT 20 U/L (17-59); BLOOD UREA NITROGEN 18 mg/dL (9-20); GFR AFRICAN-AMERICAN > 60; GFR NON-AFRICAN AMERICAN > 60
[2017-03-11 08:53] LABS: ALB/GLOB RATIO 1.4 (1.0-2.1)
--- NOTE | 2017-03-11 09:01 | CP.PCM.PN ---
Subjective - Date & Time of Evaluation Date of Evaluation: 03/11/17 Time of Evaluation: 08:39 - Subjective Subjective: PGY1 Medicine Note for Dr. Nelson Patient seen and examined at bedside this morning. Patient states he is feeling much better today. He has not been nauseous or vomited since yesterday afternoon. He tolerated some water last night. He reports minimal abdominal pain , located in his LLQ. He denies fevers or chills and states he has no other complaints at this time. For the second day in a row, the patient began to have nausea and dry heaving events starting approximately around 9 to 10am. Per nursing, these events tend to start soon after the arrival of the son. Objective - Vital Signs/Intake and Output Vital Signs (last 24 hours): Temp Pulse Resp BP Pulse Ox 98.1 F 76 18 146/81 95 03/11/17 08:14 03/11/17 08:14 03/11/17 08:14 03/11/17 08:14 03/11/17 08:14 Intake and Output: 03/11/17 03/11/17 06:59 18:59 Intake Total 470 Balance 470 - Medications Medications: Current Medications Acetaminophen (Tylenol 325mg Tab) 650 mg PO Q6 PRN PRN Reason: Fever >100.4 F Aspirin (Aspirin Chewable) 81 mg PO DAILY [facility] Last Admin: 03/10/17 10:09 Dose: 81 mg Ceftriaxone Sodium 1 gm/ (Sodium Chloride) 100 mls @ 100 mls/hr IVPB DAILY [facility] Last Admin: 03/10/17 10:09 Dose: 100 mls/hr Metronidazole (Flagyl) 500 mg in 100 mls @ 100 mls/hr IVPB Q8 [facility] Last Admin: 03/11/17 06:04 Dose: 100 mls/hr Sodium Chloride (Sodium Chloride 0.9%) 1,000 mls @ 50 mls/hr IV .Q20H [facility] Last Admin: 03/10/17 12:05 Dose: 50 mls/hr Insulin Glargine (Lantus) 20 unit SC HS [facility] Lisinopril (Zestril) 2.5 mg PO DAILY [facility] Last Admin: 03/10/17 10:09 Dose: 2.5 mg Morphine Sulfate (Morphine) 2 mg IVP Q4H PRN PRN Reason: Pain, severe (8-10) Last Admin: 12/28/17 20:57 Dose: 2 mg Ondansetron HCl (Zofran Inj) 4 mg IVP Q6 PRN PRN Reason: Nausea/Vomiting Last Admin: 03/10/17 21:28 Dose: 4 mg Pantoprazole Sodium (Protonix Inj) 40 mg IVP DAILY [facility] Last Admin: 03/10/17 10:09 Dose: 40 mg Rosuvastatin Calcium (Crestor) 5 mg PO HS [facility] Last Admin: 03/10/17 21:28 Dose: 5 mg - Labs Labs: 03/10/17 07:30 03/10/17 07:30 PT 10.6 SECONDS (9.7-12.2) 03/07/17 18:58 INR 1.0 03/07/17 18:58 APTT 29 SECONDS (21-34) 03/07/17 18:58 - Constitutional Appears: Non-toxic, No Acute Distress - Head Exam Head Exam: ATRAUMATIC, NORMOCEPHALIC - Eye Exam Eye Exam: EOMI, Normal appearance, PERRL - ENT Exam ENT Exam: Mucous Membranes Moist - Neck Exam Neck Exam: Full ROM - Respiratory Exam Respiratory Exam: Clear to Ausculation Bilateral, NORMAL BREATHING PATTERN. absent: Accessory Muscle Use, Rales, Rhonchi, Wheezes, Respiratory Distress - Cardiovascular Exam Cardiovascular Exam: REGULAR RHYTHM, +S1 - GI/Abdominal Exam GI & Abdominal Exam: Soft, Normal Bowel Sounds. absent: Firm, Guarding, Rigid, Tenderness - Extremities Exam Extremities Exam: Full ROM - Neurological Exam Neurological Exam: Alert, Awake, Oriented x3 - Psychiatric Exam Psychiatric exam: Normal Affect, Normal Mood - Skin Skin Exam: Dry, Warm Assessment and Plan - Assessment and Plan (Free Text) Plan: Acute colitis GI consulted, Dr. Crawford, help appreciated CT Abd/Pelvis w/ IV contrast 03/07/17 - Interval pattern suggest segmental colitis potentially affecting the splenic flexure through distal sigmoid segments without evidence of bowel perforation at this time. Consider infectious or inflammatory causes. Neoplasm and ischemia are occluded differential diagnosis though the pattern does not suggest either of these. Further clinical correlation is advised. WBC 9.5 full liquid diet - advance as tolerated Rocephin 1g IV QD - discontinued Metro 500mg IV Q8h - discontinued Morphine 2 IV Q4h Zofran 4 IV Q6h - given Reglan 10mg IV once, works very well for patient. NS @ 50mL/hr Protonix 40 IV QD Procal - <0.05 Lipase 60 Stool Occult Blood positive Stool Leuk negative C. Diff neg Giardia neg Stool Culture - no salmonella, shigella or campylobacter Urine - multiple species, suggest specimen Blood cultures negative at 72 hours f/u repeat abdomen/pelvis CT w/ IV contrast Diabetes accuchecks Lantus 20 SC HS Lisinoprilil 2.5 PO QD Crestor 5 PO HS Prophylactic Care DVT - SCDs Protonix 40 IV QD Potassium repleted Case discussed with Dr. Leslie Hinson Natalia PGY1
[2017-03-11] MEDS ORDERED: Potassium Chloride 20 mEq/15 ml LIQ UD PO STA (09:06)
[2017-03-11] MEDS: (Novolin R) Insulin Human Regular 100 units/ml vial SC SCH ×3 (12:10→21:35)
[2017-03-11] MEDS ORDERED: Iodixanol 320 MG/ML 100 ML BOTTLE IV ONE (16:16)
--- NOTE | 2017-03-11 18:57 | CT ---
PROCEDURE: CT Abdomen and pelvis dated 03/11/2017. HISTORY: Persistent t vomiting/colitis COMPARISON: Comparison made with CT scan abdomen pelvis 03/07/2017. TECHNIQUE: Contiguous axial images of the abdomen and pelvis. Oral contrast was administered. No IV contrast given. Coronal and Sagittal reformats generated. Radiation dose: Total exam DLP = 346.99 mGy-cm. This CT exam was performed using one or more of the following dose reduction techniques: Automated exposure control, adjustment of the mA and/or kV according to patient size, and/or use of iterative reconstruction technique. FINDINGS: LOWER THORAX: Mild atelectasis both posterior lower lung zones. Lung langley otherwise clear. No effusion or basilar pneumothorax. There is a small hiatal hernia with wall thickening of the distal esophagus likely due to protrusion of gastric mucosa. Possibility of esophagitis or other intrinsic/invasive wall lesion not excluded. LIVER: The liver exhibits normal size measuring approximately 17 cm in CC dimension. Mild diffuse fatty hepatic infiltration. No obvious hepatic masses collections or calcifications. Portal and splenic veins are opacified. GALLBLADDER AND BILE DUCTS: Gallbladder is physiologically distended. No evidence of intraluminal gallbladder calculi. PANCREAS: Visualized portions of the pancreas appear slightly atrophic. No obvious pancreatic masses collections or calcifications. SPLEEN: Spleen exhibits normal size and attenuation pattern without mass collection or calcification. ADRENALS: No adrenal lesions. KIDNEYS AND URETERS: The kidneys demonstrate symmetric nephrograms. No evidence of nephrolithiasis or hydronephrosis. BLADDER: Urinary bladder incompletely distended which in part accounts for thick-walled appearance. Muscular hypertrophy may contribute. Cystitis would be less likely in a male patient in the absence of a pertinent clinical history. Clinic correlation recommended to exclude the possibility of other intrinsic/ invasive wall lesion. REPRODUCTIVE: Prostate gland measures approximately 4.9 cm in transverse dimension. APPENDIX: Normal-appearing retrocecal appendix best seen on axial image number [id number]. BOWEL: Evaluation of the bowel is limited due to the lack of oral contrast material. Stomach is incompletely distended which in part accounts for thick-walled appearance. Visualized loops of small bowel exhibit normal contour and caliber. No evidence of acute mechanical small bowel obstruction. Again noted is wall thickening of the distal descending and sigmoid colon consistent with a nonspecific colitis. Clinical correlation recommended to exclude other possibilities such as ischemia or neoplasm. . PERITONEUM: No evidence of free intraperitoneal air. No free or loculated fluid collections. . Small fat containing umbilical hernia. LYMPH NODES: No significant/bulky adenopathy VASCULATURE: Unremarkable. No aortic aneurysm. . Partially calcified atherosclerotic plaque seen along abdominal aorta and iliac arteries. BONES: Mild multilevel degenerative spondylosis of the lower thoracic and lumbar spine. There are no acute compression fractures no retropulsed fragments. OTHER FINDINGS: None. IMPRESSION: Re- demonstrated is nonspecific oval also thickening of the distal descending and sigmoid colon likely due to post infectious/ inflammatory colitis. Clinical correlation recommended to exclude ischemia or neoplasm. Re- demonstrated is thickening of the urinary bladder likely due to incomplete distention and muscular hypertrophy. . Mild prostate gland enlargement. See above discussion For additional details and findings.
[2017-03-12] MEDS: Sodium Chloride 0.9% 1,000 ML IV SCH ×2 (04:22→11:00)
[2017-03-12 08:04] LABS: BASO % 0.3 % (0.0-2.0); HEMOGLOBIN 14.5 g/dL (12.0-18.0); LYMPH # 1.3 K/uL (1.0-4.3); LYMPH % 12.5 % (20.0-40.0); MEAN CELL VOLUME 88.2 fL (80.0-94.0); MEAN CORPUSCULAR HEMOGLOBIN 30.8 pg (27.0-31.0); MEAN CORPUSCULAR HGB CONC 34.9 g/dL (33.0-37.0); MEAN PLATELET VOLUME 10.8 fL (7.2-11.7); MONO # 0.6 K/uL (0.0-0.8); MONO % 5.2 % (0.0-10.0); NEUT # 8.7 K/uL (1.8-7.0); RBC 4.71 Mil/uL (4.40-5.90); RED CELL DISTRIBUTION WIDTH 14.6 % (11.5-14.5); WHITE BLOOD COUNT 10.6 K/uL (4.8-10.8)
[2017-03-12] MEDS: (Novolin R) Insulin Human Regular 100 units/ml vial SC SCH ×4 (08:06→22:21)
[2017-03-12 09:15] LABS: ALB/GLOB RATIO 1.3 (1.0-2.1); ALBUMIN 3.7 g/dL (3.5-5.0); ALT/SGPT 39 U/L (21-72); AST/SGOT 35 U/L (17-59); BLOOD UREA NITROGEN 15 mg/dL (9-20); CALCIUM 7.3 mg/dl (8.6-10.4); GFR AFRICAN-AMERICAN > 60; GFR NON-AFRICAN AMERICAN > 60
--- NOTE | 2017-03-12 11:35 | CP.PCM.PN ---
<Sravan Fisher - Last Filed: 03/12/17 11:28> Subjective - Date & Time of Evaluation Date of Evaluation: 03/12/17 Time of Evaluation: 08:00 - Subjective Subjective: PGY1 Medicine Note for Dr. Nelson Patient seen and examined at bedside this morning. No acute events overnight. According to nursing, the patient slept throughout the night with no episodes of nausea or vomiting. Upon entering the patient's room this morning, he was actively dry heaving. Patient states he is extremely nauseous but he is unable to vomit anything. He reports being able to tolerate liquids at night time with no nausea or vomiting. This is the third day in a row that the patient does not have any episodes of nausea/vomiting in the late afternoon through the night, then approximately 715am he begins to dry heave despite zofran scheduled. Patient reports abdominal pain associated with dry heaving but none when he is not dry heaving. Patient denies fevers, chills, chest pain, headaches, diarrhea/ constipation, numbness or tingling. Objective - Vital Signs/Intake and Output Vital Signs (last 24 hours): Temp Pulse Resp BP Pulse Ox 97.4 F L 92 H 20 161/82 H 98 03/12/17 08:19 03/12/17 08:19 03/12/17 08:19 03/12/17 08:19 03/12/17 08:19 Intake and Output: 03/12/17 03/12/17 06:59 18:59 Intake Total 1190 Balance 1190 - Medications Medications: Current Medications Acetaminophen (Tylenol 325mg Tab) 650 mg PO Q6 PRN PRN Reason: Fever >100.4 F Aspirin (Aspirin Chewable) 81 mg PO DAILY [facility] Last Admin: 03/12/17 09:40 Dose: 81 mg Famotidine (Pepcid) 20 mg IVP Q12 [facility] Sodium Chloride (Sodium Chloride 0.9%) 1,000 mls @ 50 mls/hr IV .Q20H [facility] Last Admin: 03/12/17 04:22 Dose: Not Given Insulin Glargine (Lantus) 20 unit SC HS [facility] Insulin Human Regular (Novolin R) 0 unit SC ACHS [facility] PRN Reason: Protocol Last Admin: 03/12/17 08:06 Dose: 3 unit Lisinopril (Zestril) 2.5 mg PO DAILY [facility] Last Admin: 03/12/17 09:40 Dose: 2.5 mg Morphine Sulfate (Morphine) 2 mg IVP Q4H PRN PRN Reason: Pain, severe (8-10) Last Admin: 03/12/17 02:12 Dose: 2 mg Ondansetron HCl (Zofran Inj) 4 mg IVP Q6 PRN PRN Reason: Nausea/Vomiting Last Admin: 03/12/17 02:08 Dose: 4 mg Rosuvastatin Calcium (Crestor) 5 mg PO HS [facility] Last Admin: 03/11/17 21:37 Dose: 5 mg - Labs Labs: 03/12/17 07:50 03/12/17 07:50 PT 10.6 SECONDS (9.7-12.2) 03/07/17 18:58 INR 1.0 03/07/17 18:58 APTT 29 SECONDS (21-34) 03/07/17 18:58 - Constitutional Appears: Non-toxic, No Acute Distress - Head Exam Head Exam: ATRAUMATIC, NORMOCEPHALIC - Eye Exam Eye Exam: EOMI, Normal appearance Pupil Exam: NORMAL ACCOMODATION - ENT Exam ENT Exam: Mucous Membranes Moist - Respiratory Exam Respiratory Exam: Clear to Ausculation Bilateral. absent: Accessory Muscle Use , Rales, Rhonchi, Wheezes, Respiratory Distress - Cardiovascular Exam Cardiovascular Exam: REGULAR RHYTHM, +S1 - GI/Abdominal Exam GI & Abdominal Exam: Soft, Tenderness (mild midline TTP), Normal Bowel Sounds. absent: Distended, Firm, Guarding, Rigid - Extremities Exam Extremities Exam: Normal Inspection. absent: Calf Tenderness, Pedal Edema - Neurological Exam Neurological Exam: Alert, Awake, CN II-XII Intact, Oriented x3 - Psychiatric Exam Psychiatric exam: Normal Affect, Normal Mood - Skin Skin Exam: Dry, Normal Color, Warm Assessment and Plan - Assessment and Plan (Free Text) Plan: Acute colitis Patient still vomiting only in the early hours. Will add scheduled Reglan to attempt to stop this. Antibiotics were discontinued yesterday, will continue to monitor WBC. GI consulted, Dr. Crawford, help appreciated CT Abd/Pelvis w/ IV contrast 03/07/17 - Interval pattern suggest segmental colitis potentially affecting the splenic flexure through distal sigmoid segments without evidence of bowel perforation at this time. Consider infectious or inflammatory causes. Neoplasm and ischemia are occluded differential diagnosis though the pattern does not suggest either of these. Further clinical correlation is advised. repeat abdomen/pelvis CT w/ IV contrast 03/11/17 - Thickening of the distal descending and sigmonid colon likely due to post infectoius/inflammatory colitis. Clinical correlation recommended to exclude ischemia or neoplasm. Re- demonstrated is thickening of the urinary blader likely due to incomplete distention and muscular hypertrophy. Mild prostate gland enlargement. WBC 10.6 full liquid diet - advance as tolerated Morphine 2 IV Q4h Zofran 4 IV Q6h PRN Reglan 10mg IV Q6h NS @ 50mL/hr Procal - <0.05 Lipase 60 Stool Occult Blood positive Stool Leuk negative C. Diff neg Giardia neg Blood Cultures negative at 4 days Stool Culture - no salmonella, shigella or campylobacter Urine Culture- multiple species, suggest specimen f/u Repeat Urine Culture f/u post void residuals Diabetes accuchecks Lantus 20 SC HS Lisinoprilil 2.5 PO QD Crestor 5 PO HS Prophylactic Care DVT - SCDs Protonix 40mg IV QD - switched to Pepcid 20mg IV q12h Potassium repleted Case discussed with Dr. Leslie Hinson Natalia PGY1 <Rogerio Nelson H - Last Filed: 03/12/17 15:43> Objective - Vital Signs/Intake and Output Vital Signs (last 24 hours): Temp Pulse Resp BP Pulse Ox 99.0 F 86 20 169/75 H 96 03/12/17 15:33 03/12/17 15:33 03/12/17 15:33 03/12/17 15:33 03/12/17 15:33 Intake and Output: 03/12/17 03/12/17 06:59 18:59 Intake Total 1190 500 Output Total 580 Balance 1190 -80 - Medications Medications: Current Medications Acetaminophen (Tylenol 325mg Tab) 650 mg PO Q6 PRN PRN Reason: Fever >100.4 F Aspirin (Aspirin Chewable) 81 mg PO DAILY [facility] Last Admin: 03/12/17 09:40 Dose: 81 mg Famotidine (Pepcid) 20 mg IVP Q12 [facility] Sodium Chloride (Sodium Chloride 0.9%) 1,000 mls @ 50 mls/hr IV .Q20H [facility] Last Admin: 03/12/17 11:00 Dose: 50 mls/hr Potassium Chloride (Potassium Chloride 10 Meq/100 Ml) 10 meq in 100 mls @ 50 mls/hr IVPB Q2H [facility] Stop: 03/12/17 19:44 Last Admin: 03/12/17 14:21 Dose: 50 mls/hr Insulin Glargine (Lantus) 20 unit SC HS [facility] Insulin Human Regular (Novolin R) 0 unit SC ACHS [facility] PRN Reason: Protocol Last Admin: 03/12/17 12:10 Dose: 4 unit Lisinopril (Zestril) 2.5 mg PO DAILY [facility] Last Admin: 03/12/17 09:40 Dose: 2.5 mg Metoclopramide HCl (Reglan) 10 mg IVP Q6H [facility] Last Admin: 03/12/17 12:33 Dose: 10 mg Morphine Sulfate (Morphine) 2 mg IVP Q4H PRN PRN Reason: Pain, severe (8-10) Last Admin: 03/12/17 02:12 Dose: 2 mg Ondansetron HCl (Zofran Inj) 4 mg IVP Q6 PRN PRN Reason: Nausea/Vomiting Last Admin: 03/12/17 02:08 Dose: 4 mg Rosuvastatin Calcium (Crestor) 5 mg PO HS [facility] Last Admin: 03/11/17 21:37 Dose: 5 mg - Labs Labs: 03/12/17 07:50 03/12/17 07:50 PT 10.6 SECONDS (9.7-12.2) 03/07/17 18:58 INR 1.0 03/07/17 18:58 APTT 29 SECONDS (21-34) 03/07/17 18:58 Attending/Attestation - Attestation I have personally seen and examined this patient.: Yes I have fully participated in the care of the patient.: Yes I have reviewed all pertinent clinical information, including history, physical exam and plan: Yes Notes (Text): 03/12/17 15:43 Medical attending: Patient was seen and examined by me, agrees the above note by the medical stenographer. Overnight the patient was reportedly doing quite well, and again this morning was doing well and at some point in the morning before I saw him he then developed nausea vomiting. He tells me he does not have abdominal tenderness but he feels as if he is very nauseous. He has a lot of episodes of dry heaves says. He hasn't been able to hold down any food or drink His white blood cell count has resolved. A repeat CT scan was done showed that he still has some postinfectious inflammatory colitis picture. So at this time will continue to monitor Thank you very much, Rogerio Nelson
[2017-03-13 08:00] LABS: BASO % 0.4 % (0.0-2.0); EOS % 0.2 % (0.0-4.0); HEMOGLOBIN 15.5 g/dL (12.0-18.0); LYMPH # 2.2 K/uL (1.0-4.3); LYMPH % 20.3 % (20.0-40.0); MEAN CELL VOLUME 88.3 fL (80.0-94.0); MEAN CORPUSCULAR HEMOGLOBIN 30.9 pg (27.0-31.0); MEAN PLATELET VOLUME 10.6 fL (7.2-11.7); MONO # 0.8 K/uL (0.0-0.8); MONO % 7.5 % (0.0-10.0); NEUT # 7.9 K/uL (1.8-7.0); NEUT % 71.6 % (50.0-75.0); NRBC % 0.1 % (0.0-2.0); RBC 5.01 Mil/uL (4.40-5.90); RED CELL DISTRIBUTION WIDTH 14.5 % (11.5-14.5)
[2017-03-13] MEDS: (Novolin R) Insulin Human Regular 100 units/ml vial SC SCH ×4 (08:28→21:44)
[2017-03-13 08:37] LABS: ALB/GLOB RATIO 1.4 (1.0-2.1); ALBUMIN 3.7 g/dL (3.5-5.0); ALT/SGPT 48 U/L (21-72); AST/SGOT 31 U/L (17-59); BLOOD UREA NITROGEN 15 mg/dL (9-20); CALCIUM 7.6 mg/dl (8.6-10.4); GFR AFRICAN-AMERICAN > 60; GFR NON-AFRICAN AMERICAN > 60
[2017-03-13] MEDS: Sodium Chloride 0.9% 1,000 ML IV SCH ×3 (09:53→22:13)
[2017-03-13] MEDS ORDERED: Pantoprazole 40 mg EC Tab PO SCH (10:00)
--- NOTE | 2017-03-13 12:19 | CP.PCM.PN ---
Subjective - Date & Time of Evaluation Date of Evaluation: 03/13/17 Time of Evaluation: 12:14 - Subjective Subjective: PGY1 Medicine Note for Dr. Nelson Patient seen and examined at bedside this morning. Patient states he has some mild midline abdominal pain. He is not currently dry heaving/vomiting but states is his experiencing a little bit of nausea. He states he has no problems with urinating but has still not had a bowel movement. He does not know the last time had a bowel movement. He denies any fevers, chills, chest pain, numbness or tingling. Objective - Vital Signs/Intake and Output Vital Signs (last 24 hours): Temp Pulse Resp BP Pulse Ox 98.9 F 80 20 178/93 H 100 03/13/17 07:00 03/13/17 08:00 03/13/17 07:00 03/13/17 07:00 03/13/17 07:00 Intake and Output: 03/13/17 03/13/17 06:59 18:59 Intake Total 600 Output Total 565 Balance 35 - Medications Medications: Current Medications Acetaminophen (Tylenol 325mg Tab) 650 mg PO Q6 PRN PRN Reason: Fever >100.4 F Aspirin (Aspirin Chewable) 81 mg PO DAILY [facility] Last Admin: 03/13/17 09:48 Dose: 81 mg Famotidine (Pepcid) 20 mg IVP Q12 [facility] Last Admin: 03/13/17 09:48 Dose: 20 mg Sodium Chloride (Sodium Chloride 0.9%) 1,000 mls @ 75 mls/hr IV .[id number] [facility] Last Admin: 03/13/17 09:53 Dose: 75 mls/hr Insulin Glargine (Lantus) 20 unit SC HS [facility] Insulin Human Regular (Novolin R) 0 unit SC ACHS [facility] PRN Reason: Protocol Last Admin: 03/13/17 08:28 Dose: 3 unit Lisinopril (Zestril) 2.5 mg PO DAILY [facility] Last Admin: 03/13/17 09:48 Dose: 2.5 mg Metoclopramide HCl (Reglan) 10 mg IVP Q6H [facility] Last Admin: 03/13/17 06:43 Dose: 10 mg Morphine Sulfate (Morphine) 2 mg IVP Q4H PRN PRN Reason: Pain, severe (8-10) Last Admin: 03/13/17 06:53 Dose: 2 mg Ondansetron HCl (Zofran Inj) 4 mg IVP Q6 PRN PRN Reason: Nausea/Vomiting Last Admin: 03/12/17 21:06 Dose: 4 mg Rosuvastatin Calcium (Crestor) 5 mg PO HS [facility] Last Admin: 03/12/17 21:07 Dose: 5 mg - Labs Labs: 03/13/17 07:41 03/13/17 07:41 PT 10.6 SECONDS (9.7-12.2) 03/07/17 18:58 INR 1.0 03/07/17 18:58 APTT 29 SECONDS (21-34) 03/07/17 18:58 - Constitutional Appears: Non-toxic, No Acute Distress - Head Exam Head Exam: ATRAUMATIC, NORMOCEPHALIC - Eye Exam Eye Exam: EOMI, Normal appearance - ENT Exam ENT Exam: Mucous Membranes Moist - Respiratory Exam Respiratory Exam: Clear to Ausculation Bilateral, NORMAL BREATHING PATTERN. absent: Accessory Muscle Use, Rales, Rhonchi, Wheezes, Respiratory Distress - Cardiovascular Exam Cardiovascular Exam: REGULAR RHYTHM, +S1. absent: JVD - GI/Abdominal Exam GI & Abdominal Exam: Soft, Tenderness (mild midline TTP). absent: Distended, Firm, Guarding, Rigid - Extremities Exam Extremities Exam: absent: Calf Tenderness, Pedal Edema - Neurological Exam Neurological Exam: Alert, Awake, CN II-XII Intact, Oriented x3 - Skin Skin Exam: Dry, Warm Assessment and Plan - Assessment and Plan (Free Text) Plan: Acute colitis Patient states he is only mildly nauseous now and not actively dry heaving. Antibiotics were discontinued on 03/12, will continue to monitor WBC. GI consulted, Dr. Crawford, help appreciated CT Abd/Pelvis w/ IV contrast 03/07/17 - Interval pattern suggest segmental colitis potentially affecting the splenic flexure through distal sigmoid segments without evidence of bowel perforation at this time. Consider infectious or inflammatory causes. Neoplasm and ischemia are occluded differential diagnosis though the pattern does not suggest either of these. Further clinical correlation is advised. repeat abdomen/pelvis CT w/ IV contrast 03/11/17 - Thickening of the distal descending and sigmonid colon likely due to post infectoius/inflammatory colitis. Clinical correlation recommended to exclude ischemia or neoplasm. Re- demonstrated is thickening of the urinary blader likely due to incomplete distention and muscular hypertrophy. Mild prostate gland enlargement. WBC 11 full liquid diet - advance as tolerated Morphine 2 IV Q4h Zofran 4 IV Q6h PRN Reglan 10mg IV Q6h NS @ 50mL/hr Procal - <0.05 Lipase 60 Stool Occult Blood positive Stool Leuk negative C. Diff neg Giardia neg Blood Cultures negative at 4 days Stool Culture - no salmonella, shigella or campylobacter Urine Culture- multiple species, suggest specimen f/u Repeat Urine Culture f/u post void residuals Diabetes accuchecks Lantus 20 SC HS Lisinoprilil 2.5 PO QD Crestor 5 PO HS Hypokalemia K 3.3 - repleted Prophylactic Care DVT - SCDs Pepcid 20mg IV q12h Case discussed with Dr. Leslie Hinson Natalia PGY1
[2017-03-14] MEDS: (Novolin R) Insulin Human Regular 100 units/ml vial SC SCH ×4 (07:45→21:23)
[2017-03-14 08:14] LABS: BASO % 0.3 % (0.0-2.0); EOS % 0.4 % (0.0-4.0); HEMOGLOBIN 14.8 g/dL (12.0-18.0); LYMPH # 1.5 K/uL (1.0-4.3); MEAN CELL VOLUME 87.1 fL (80.0-94.0); MEAN CORPUSCULAR HEMOGLOBIN 30.7 pg (27.0-31.0); MEAN CORPUSCULAR HGB CONC 35.2 g/dL (33.0-37.0); MEAN PLATELET VOLUME 10.4 fL (7.2-11.7); MONO # 0.8 K/uL (0.0-0.8); MONO % 7.2 % (0.0-10.0); NEUT # 8.4 K/uL (1.8-7.0); NEUT % 78.1 % (50.0-75.0); RBC 4.81 Mil/uL (4.40-5.90); RED CELL DISTRIBUTION WIDTH 14.4 % (11.5-14.5); WHITE BLOOD COUNT 10.7 K/uL (4.8-10.8)
[2017-03-14 08:36] LABS: ALB/GLOB RATIO 1.2 (1.0-2.1); ALBUMIN 3.3 g/dL (3.5-5.0); ALT/SGPT 41 U/L (21-72); AST/SGOT 21 U/L (17-59); BLOOD UREA NITROGEN 13 mg/dL (9-20); CALCIUM 7.3 mg/dl (8.6-10.4); GFR AFRICAN-AMERICAN > 60; GFR NON-AFRICAN AMERICAN > 60
[2017-03-14] MEDS ORDERED: Glucagon Recombinant 1 mg Inj IM PRN (09:25)
[2017-03-14] MEDS ORDERED: Dextrose 50% SYRINGE Inj (50 ml) IV PRN (09:25)
--- NOTE | 2017-03-14 09:28 | CP.PCM.PN ---
<Dioni Garcia - Last Filed: 03/14/17 12:18> Subjective - Date & Time of Evaluation Date of Evaluation: 03/14/17 Time of Evaluation: 09:17 - Subjective Subjective: PGY1 Medicine Note for Dr. Nelson Patient seen and examined at bedside this morning. Patient states he has some mild midline abdominal pain rated 7/10. He is not currently dry heaving/ vomiting but states is his experiencing a little bit of nausea. He had 3 episodes of vomiting this morning which was minimal and clear colored. He was given Reglan. He does not know the last time had a bowel movement. He denies any fevers, chills, chest pain, numbness or tingling. Objective - Vital Signs/Intake and Output Vital Signs (last 24 hours): Temp Pulse Resp BP Pulse Ox 99.0 F 82 18 138/84 98 03/14/17 08:19 03/14/17 08:19 03/14/17 08:19 03/14/17 08:19 03/14/17 08:19 Intake and Output: 03/14/17 03/14/17 06:59 18:59 Intake Total 900 Output Total 600 Balance 300 - Medications Medications: Current Medications Acetaminophen (Tylenol 325mg Tab) 650 mg PO Q6 PRN PRN Reason: Fever >100.4 F Aspirin (Aspirin Chewable) 81 mg PO DAILY [facility] Last Admin: 03/13/17 09:48 Dose: 81 mg Famotidine (Pepcid) 20 mg IVP Q12 [facility] Last Admin: 03/13/17 21:47 Dose: 20 mg Sodium Chloride (Sodium Chloride 0.9%) 1,000 mls @ 75 mls/hr IV .[id number] [facility] Last Admin: 03/13/17 22:13 Dose: Not Given Insulin Glargine (Lantus) 20 unit SC HS [facility] Insulin Human Regular (Novolin R) 0 unit SC ACHS [facility] PRN Reason: Protocol Last Admin: 03/14/17 07:45 Dose: 3 unit Lisinopril (Zestril) 2.5 mg PO DAILY [facility] Last Admin: 03/13/17 09:48 Dose: 2.5 mg Metoclopramide HCl (Reglan) 10 mg IVP Q6H [facility] Last Admin: 03/14/17 05:17 Dose: 10 mg Morphine Sulfate (Morphine) 2 mg IVP Q4H PRN PRN Reason: Pain, severe (8-10) Last Admin: 03/14/17 07:42 Dose: 2 mg Ondansetron HCl (Zofran Inj) 4 mg IVP Q6 PRN PRN Reason: Nausea/Vomiting Last Admin: 03/12/17 21:06 Dose: 4 mg Rosuvastatin Calcium (Crestor) 5 mg PO HS [facility] Last Admin: 03/13/17 21:47 Dose: 5 mg - Labs Labs: 03/14/17 08:07 03/14/17 08:07 PT 10.6 SECONDS (9.7-12.2) 03/07/17 18:58 INR 1.0 03/07/17 18:58 APTT 29 SECONDS (21-34) 03/07/17 18:58 - Additional Findings Additional findings: - Constitutional Appears: Non-toxic, No Acute Distress - Head Exam Head Exam: ATRAUMATIC, NORMOCEPHALIC - Eye Exam Eye Exam: EOMI, Normal appearance - ENT Exam ENT Exam: Mucous Membranes Moist - Respiratory Exam Respiratory Exam: Clear to Ausculation Bilateral, NORMAL BREATHING PATTERN. absent: Accessory Muscle Use, Rales, Rhonchi, Wheezes, Respiratory Distress - Cardiovascular Exam Cardiovascular Exam: REGULAR RHYTHM, +S1. absent: JVD - GI/Abdominal Exam GI & Abdominal Exam: Soft, Tenderness (mild midline TTP). absent: Distended, Firm, Guarding, Rigid - Extremities Exam Extremities Exam: absent: Calf Tenderness, Pedal Edema - Neurological Exam Neurological Exam: Alert, Awake, CN II-XII Intact, Oriented x3 - Skin Skin Exam: Dry, Warm Assessment and Plan - Assessment and Plan (Free Text) Assessment: Acute colitis No leukocytosis; afebrile GI consulted, Dr. Crawford, help appreciated full liquid diet - advance as tolerated Procal - <0.05 Lipase 60 Stool Occult Blood positive C. Diff neg, Giardia neg, Stool Ova and Parasite 03/08 negative, Stool Leuk negative Blood Cultures 03/07 negative up to date Stool Culture 03/08 - no salmonella, shigella or campylobacter Urine Culture 03/12 negative f/u post void residuals Imaging: CT Abd/Pelvis w/ IV contrast 03/07/17 - Interval pattern suggest segmental colitis potentially affecting the splenic flexure through distal sigmoid segments without evidence of bowel perforation at this time. Consider infectious or inflammatory causes. Neoplasm and ischemia are occluded differential diagnosis though the pattern does not suggest either of these. Further clinical correlation is advised. Repeat And/Pelvis CT w/ IV contrast 03/11/17 - Thickening of the distal descending and sigmonid colon likely due to post infectoius/inflammatory colitis. Clinical correlation recommended to exclude ischemia or neoplasm. Re- demonstrated is thickening of the urinary blader likely due to incomplete distention and muscular hypertrophy. Mild prostate gland enlargement. F/U Barium Enema w/ air contrast scheduled for 03/15/17 Meds: Morphine 2 IV Q4h Zofran 4 IV Q6h PRN Reglan 10mg IV Q6h Hyponatremia Consult Nephrology, Dr [place] HOLD Fluids F/U Serum Osm, Urine Osm, Random Sodium Urine Diabetes accuchecks ACHS Lantus 20 SC HS Con't home med Lisinoprilil 2.5 PO QD Crestor 5 PO HS Hypoglycemia protocol Hypokalemia, Resolved Replete as necessary Prophylactic Care DVT - SCDs, VTE contraindicated 04/15 Stool Occult Blood positive Pepcid 20mg IV q12h Case discussed with Dr. Nelson <Rogerio Nelson H - Last Filed: 03/14/17 13:14> Objective - Vital Signs/Intake and Output Vital Signs (last 24 hours): Temp Pulse Resp BP Pulse Ox 99.0 F 82 18 138/84 98 03/14/17 08:19 03/14/17 08:19 03/14/17 08:19 03/14/17 08:19 03/14/17 08:19 Intake and Output: 03/14/17 03/14/17 06:59 18:59 Intake Total 900 Output Total 600 Balance 300 - Medications Medications: Current Medications Acetaminophen (Tylenol 325mg Tab) 650 mg PO Q6 PRN PRN Reason: Fever >100.4 F Aspirin (Aspirin Chewable) 81 mg PO DAILY [facility] Last Admin: 03/14/17 09:40 Dose: 81 mg Dextrose (Dextrose 50% Inj) 0 ml IV STAT PRN; Protocol PRN Reason: Hypoglycemia Protocol Dextrose (Glutose 15) 0 gm PO ONCE PRN; Protocol PRN Reason: Hypoglycemia Protocol Famotidine (Pepcid) 20 mg IVP Q12 [facility] Last Admin: 03/14/17 09:40 Dose: 20 mg Glucagon (Glucagen Diagnostic Kit) 0 mg IM STAT PRN; Protocol PRN Reason: Hypoglycemia Protocol Dextrose (Dextrose 5% In Water 1000 Ml) 1,000 mls @ 0 mls/hr IV .Q0M PRN; Protocol; Per Protocol PRN Reason: Hypoglycemia Protocol Insulin Glargine (Lantus) 20 unit SC HS [facility] Insulin Human Regular (Novolin R) 0 unit SC ACHS [facility] PRN Reason: Protocol Last Admin: 03/14/17 12:07 Dose: 4 unit Lisinopril (Zestril) 2.5 mg PO DAILY [facility] Last Admin: 03/14/17 09:40 Dose: 2.5 mg Metoclopramide HCl (Reglan) 10 mg IVP Q6H [facility] Last Admin: 03/14/17 12:09 Dose: 10 mg Morphine Sulfate (Morphine) 2 mg IVP Q4H PRN PRN Reason: Pain, severe (8-10) Last Admin: 03/14/17 07:42 Dose: 2 mg Ondansetron HCl (Zofran Inj) 4 mg IVP Q6 PRN PRN Reason: Nausea/Vomiting Last Admin: 03/12/17 21:06 Dose: 4 mg Rosuvastatin Calcium (Crestor) 5 mg PO HS [facility] Last Admin: 03/13/17 21:47 Dose: 5 mg - Labs Labs: 03/14/17 08:07 03/14/17 08:07 PT 10.6 SECONDS (9.7-12.2) 03/07/17 18:58 INR 1.0 03/07/17 18:58 APTT 29 SECONDS (21-34) 03/07/17 18:58 Attending/Attestation - Attestation I have personally seen and examined this patient.: Yes I have fully participated in the care of the patient.: Yes I have reviewed all pertinent clinical information, including history, physical exam and plan: Yes Notes (Text): 03/14/17 13:13 Medical attending: Patient was seen and examined by me, agree with the above note by medical instructor. When I saw the patient by myself earlier this morning, he was not in any acute distress or concern. He had a basin at his bedside however it did not have any fluid or vomit material and it. He explained to me that his abdominal pain was less than before and he was currently feeling okay. As mentioned previously the patient has been observed for the past couple of days appearing stable however sometime in the morning will have reportedly balance of nausea and vomiting. Today the sodium again continued to decrease, round check a urine sodium, urinalysis, plasma osmolality. We'll also try to get nephrology evaluation of the patient as well His antibiotics are currently on hold at this time. His white blood cell count has been stable at this time. He is not having any fevers. And his blood pressure is steady thank you Rogerio Nelson 03/14/17 13:14
[2017-03-14] MEDS ORDERED: Influenza Vaccine 60 mcg/0.5 mL SYR (4YR UP) IM ONE (10:00)
--- NOTE | 2017-03-14 14:57 | CP.PCM.CON ---
History of Present Illness - History of Present Illness History of Present Illness: HPI: Patient is a 57M with a PMH of stroke, DM who comes to the ED with a 1 days history of vomiting and diarrhea. He is having blood in the diarrhea. No blood in the vomit. Ate chicken yesterday and then later that night had 4 episodes of diarrhea. Had 7 episodes of diarrhea today. Denies fever, chills, chest pain, SOB. Denies sick contacts, Denies recent travel. Everyone else who ate the chicken is currently not sick. Nothing makes it better or worse. He was currently vomiting in the ED when I saw him. ROS: Per HPI PMH: DM, Stroke PSH: L. leg surgery FH: unremarkable; no CKD SH: Denies smoking, drinking, drugs All: none Renal consult requested for progressive hyponatremia. Has had increased nausea, wretching. Was on D5W IV fluids Review of Systems - Constitutional Constitutional: absent: As Per HPI, Anorexia, Chills, Daytime Sleepiness, Excessive Sweating, Fatigue, Fever, Frequent Falls, Headache, Increased Appetite , Lethargy, Malaise, Night Sweats, Snoring, Sleep Apnea, Weight Gain, Weight Loss, Weakness, Other - EENT Eyes: absent: As Per HPI, Blind Spots, Blurred Vision, Change in Vision, Decreased Night Vision, Diplopia, Discharge, Dry Eye, Exophthalmos, Floaters, Irritation, Itchy Eyes, Loss of Peripheral Vision, Pain, Photophobia, Requires Corrective Lenses, Sees Flashes, Spots in Vision, Tunnel Vision, Other Visual Disturbances, Loss of Vision, Other Nose/Mouth/Throat: absent: As Per HPI, Epistaxis, Nasal Congestion, Nasal Discharge, Nasal Obstruction, Nasal Trauma, Nose Pain, Post Nasal Drip, Sinus Pain, Sinus Pressure, Bleeding Gums, Change in Voice, Dental Pain, Dry Mouth, Dysphagia, Halitosis, Hoarsness, Lip Swelling, Mouth Lesions, Mouth Pain, Odynophagia, Sore Throat, Throat Swelling, Tongue Swelling, Facial Pain, Neck Pain, Neck Mass, Other - Cardiovascular Cardiovascular: absent: As Per HPI, Acrocyanosis, Chest Pain, Chest Pain at Rest , Chest Pain with Activity, Claudication, Diaphoresis, Dyspnea, Dyspnea on Exertion, Edema, Irregular Heart Rhythm, Pain Radiating to Arm/Neck/Jaw, Leg Edema, Leg Ulcers, Lightheadedness, Orthopnea, Palpitations, Paroxysmal Nocturnal Dyspnea, Pedal Edema, Radiating Pain, Rapid Heart Rate, Slow Heart Rate, Syncope, Other - Respiratory Respiratory: absent: As Per HPI, Cough, Dyspnea, Hemoptysis, Dyspnea on Exertion , Wheezing, Snoring, Stridor, Pain on Inspiration, Chest Congestion, Excessive Mucous Production, Change in Mucous Color, Pain with Coughing, Other - Gastrointestinal Gastrointestinal: As Per HPI, Nausea, Vomiting - Musculoskeletal Musculoskeletal: Muscle Weakness, Myalgias - Neurological Neurological: Weakness Past Patient History - Infectious Disease Hx of Infectious Diseases: None - Tetanus Immunizations Tetanus Immunization: Unknown - Past Medical History & Family History Past Medical History?: Yes - Past Social History Smoking Status: Never Smoked Chewing Tobacco Use: No Cigar Use: No Alcohol: None Drugs: Denies Home Situation {Lives}: With Family - CARDIAC Hx Hypercholesterolemia: Yes Hx Hypertension: Yes - PULMONARY Hx Respiratory Disorders: No - NEUROLOGICAL Hx Neurological Disorder: Yes Other/Comment: Brain Bleed. - HEENT Hx HEENT Problems: Yes Hx Cataracts: Yes - RENAL Hx Chronic Kidney Disease: No - ENDOCRINE/METABOLIC Hx Diabetes Mellitus Type 2: Yes (diabetic neuropathy) - HEMATOLOGICAL/ONCOLOGICAL Hx Blood Disorders: No - INTEGUMENTARY Hx Dermatological Problems: Yes Other/Comment: LEFT GREAT TOE WITH HEALED DIABETIC ULCER ALL NAILS WITH ONCHYMYCOSIS - MUSCULOSKELETAL/RHEUMATOLOGICAL Hx Musculoskeletal Disorders: Yes Hx Falls: Yes Hx Osteomyelitis: Yes (LEFT FOOT) Other/Comment: DIABETIC NEUROPATHY - GASTROINTESTINAL Hx Gastritis: Yes - GENITOURINARY/GYNECOLOGICAL Hx Genitourinary Disorders: No - PSYCHIATRIC Hx Substance Use: No - SURGICAL HISTORY Hx Surgeries: Yes Hx Cataract Extraction: Yes ([facility]. 2014) Other/Comment: Endoscopy. - ANESTHESIA Hx Anesthesia: Yes Hx Anesthesia Reactions: No Hx Malignant Hyperthermia: No Has any member of the family had a problem w/ anesthesia?: No Meds Allergies/Adverse Reactions: Allergies Allergy/AdvReac Type Severity Reaction Status Date / Time No Known Allergies Allergy Verified 03/07/17 18:25 - Medications Medications: Current Medications Acetaminophen (Tylenol 325mg Tab) 650 mg PO Q6 PRN PRN Reason: Fever >100.4 F Aspirin (Aspirin Chewable) 81 mg PO DAILY [facility] Last Admin: 03/14/17 09:40 Dose: 81 mg Dextrose (Dextrose 50% Inj) 0 ml IV STAT PRN; Protocol PRN Reason: Hypoglycemia Protocol Dextrose (Glutose 15) 0 gm PO ONCE PRN; Protocol PRN Reason: Hypoglycemia Protocol Famotidine (Pepcid) 20 mg IVP Q12 [facility] Last Admin: 03/14/17 09:40 Dose: 20 mg Glucagon (Glucagen Diagnostic Kit) 0 mg IM STAT PRN; Protocol PRN Reason: Hypoglycemia Protocol Dextrose (Dextrose 5% In Water 1000 Ml) 1,000 mls @ 0 mls/hr IV .Q0M PRN; Protocol; Per Protocol PRN Reason: Hypoglycemia Protocol Insulin Glargine (Lantus) 20 unit SC HS [facility] Insulin Human Regular (Novolin R) 0 unit SC ACHS [facility] PRN Reason: Protocol Last Admin: 03/14/17 12:07 Dose: 4 unit Lisinopril (Zestril) 2.5 mg PO DAILY [facility] Last Admin: 03/14/17 09:40 Dose: 2.5 mg Metoclopramide HCl (Reglan) 10 mg IVP Q6H [facility] Last Admin: 03/14/17 12:09 Dose: 10 mg Morphine Sulfate (Morphine) 2 mg IVP Q4H PRN PRN Reason: Pain, severe (8-10) Last Admin: 03/14/17 07:42 Dose: 2 mg Ondansetron HCl (Zofran Inj) 4 mg IVP Q6 PRN PRN Reason: Nausea/Vomiting Last Admin: 03/12/17 21:06 Dose: 4 mg Rosuvastatin Calcium (Crestor) 5 mg PO [facility] Last Admin: 03/13/17 21:47 Dose: 5 mg Physical Exam - Constitutional Appears: No Acute Distress, Chronically Ill - Head Exam Head Exam: ATRAUMATIC, NORMAL INSPECTION - Eye Exam Eye Exam: EOMI, Normal appearance - Neck Exam Neck exam: Positive for: Normal Inspection. Negative for: Tenderness - Respiratory Exam Respiratory Exam: Clear to Auscultation Bilateral, NORMAL BREATHING PATTERN - GI/Abdominal Exam GI & Abdominal Exam: Soft, Tenderness - Extremities Exam Extremities exam: Positive for: normal inspection. Negative for: tenderness - Neurological Exam Neurological exam: Alert, CN II-XII Intact - Skin Skin Exam: Dry, Warm Results - Vital Signs Recent Vital Signs: Last Vital Signs Temp 99.0 F 03/14/17 08:19 Pulse 87 01/01/18 13:30 Resp 18 03/14/17 08:19 BP 138/84 03/14/17 08:19 Pulse Ox 98 03/14/17 08:19 - Labs Result Diagrams: 03/14/17 08:07 03/14/17 08:07 Labs: Laboratory Results - last 24 hr 03/13/17 03/13/17 03/14/17 16:58 21:15 06:21 WBC RBC Hgb Hct MCV MCH MCHC RDW Plt Count MPV Neut % (Auto) Lymph % (Auto) [place] % (Auto) Eos % (Auto) Baso % (Auto) Neut # Lymph # [place] # Eos # Baso # Sodium Potassium Chloride Carbon Dioxide Anion Gap BUN Creatinine Est GFR ( Amer) Est GFR (Non-Af Amer) POC Glucose (mg/dL) 195 H 191 H 243 H Random Glucose Serum Osmolality Calcium Total Bilirubin AST ALT Alkaline Phosphatase Total Protein Albumin Globulin Albumin/Globulin Ratio 03/14/17 03/14/17 03/14/17 08:07 08:07 11:40 WBC 10.7 RBC 4.81 Hgb 14.8 Hct 41.9 MCV 87.1 MCH 30.7 MCHC 35.2 RDW 14.4 Plt Count 285 MPV 10.4 Neut % (Auto) 78.1 H Lymph % (Auto) 14.0 L [place] % (Auto) 7.2 Eos % (Auto) 0.4 Baso % (Auto) 0.3 Neut # 8.4 H Lymph # 1.5 [place] # 0.8 Eos # 0.0 Baso # 0.0 Sodium 122 L Potassium 3.7 Chloride 90 L Carbon Dioxide 25 Anion Gap 11 BUN 13 Creatinine 0.7 L Est GFR ( Amer) > 60 Est GFR (Non-Af Amer) > 60 POC Glucose (mg/dL) Random Glucose 249 H Serum Osmolality 280 Calcium 7.3 L Total Bilirubin 1.0 AST 21 ALT 41 Alkaline Phosphatase 67 Total Protein 6.0 L Albumin 3.3 L Globulin 2.7 Albumin/Globulin Ratio 1.2 03/14/17 11:50 WBC RBC Hgb Hct MCV MCH MCHC RDW Plt Count MPV Neut % (Auto) Lymph % (Auto) [place] % (Auto) Eos % (Auto) Baso % (Auto) Neut # Lymph # [place] # Eos # Baso # Sodium Potassium Chloride Carbon Dioxide Anion Gap BUN Creatinine Est GFR ( Amer) Est GFR (Non-Af Amer) POC Glucose (mg/dL) 281 H Random Glucose Serum Osmolality Calcium Total Bilirubin AST ALT Alkaline Phosphatase Total Protein Albumin Globulin Albumin/Globulin Ratio Assessment & Plan (1) HTN (hypertension) Status: Acute (2) DM type 2 (diabetes mellitus, type 2) Status: Acute (3) Hyponatremia Status: Acute (4) CVA (cerebral vascular accident) Status: Acute - Assessment and Plan (Free Text) Assessment: r/o SIADH Excerbated by IV D5W fluids Plan: Fluid restriction Uosm, urine Na, serum uric acid Serial chemistries Stop IV D5W fluids
[2017-03-14 15:01] LABS: OSMOLALITY,URINE 571 mosm/kg (300-1000)
[2017-03-14 15:48] VITALS: RESP 20
[2017-03-14] MEDS: Sodium Chloride 0.9% 1,000 ML IV SCH (15:51)
[2017-03-14 17:21] LABS: BLOOD UREA NITROGEN 14 mg/dL (9-20); CALCIUM 7.2 mg/dl (8.6-10.4); GFR AFRICAN-AMERICAN > 60; GFR NON-AFRICAN AMERICAN > 60; URIC ACID 2.2 mg/dL (3.5-8.5)
[2017-03-15] MEDS: Sodium Chloride 0.9% 1,000 ML IV SCH (06:19)
[2017-03-15 07:23] LABS: BASO % 0.3 % (0.0-2.0); EOS # 0.1 K/uL (0.0-0.7); EOS % 0.7 % (0.0-4.0); HEMOGLOBIN 14.2 g/dL (12.0-18.0); LYMPH # 1.5 K/uL (1.0-4.3); LYMPH % 14.4 % (20.0-40.0); MEAN CELL VOLUME 87.1 fL (80.0-94.0); MEAN CORPUSCULAR HEMOGLOBIN 31.2 pg (27.0-31.0); MEAN CORPUSCULAR HGB CONC 35.9 g/dL (33.0-37.0); MEAN PLATELET VOLUME 10.5 fL (7.2-11.7); MONO # 0.8 K/uL (0.0-0.8); MONO % 7.9 % (0.0-10.0); NEUT # 8.1 K/uL (1.8-7.0); NEUT % 76.7 % (50.0-75.0); NRBC % 0.1 % (0.0-2.0); RBC 4.56 Mil/uL (4.40-5.90); RED CELL DISTRIBUTION WIDTH 13.9 % (11.5-14.5); WHITE BLOOD COUNT 10.6 K/uL (4.8-10.8)
[2017-03-15 07:36] LABS: ALB/GLOB RATIO 1.2 (1.0-2.1); ALT/SGPT 32 U/L (21-72); AST/SGOT 18 U/L (17-59); BLOOD UREA NITROGEN 12 mg/dL (9-20); CALCIUM 7.3 mg/dl (8.6-10.4); GFR AFRICAN-AMERICAN > 60; GFR NON-AFRICAN AMERICAN > 60
--- NOTE | 2017-03-15 07:56 | CP.PCM.PN ---
<Dioni Garcia - Last Filed: 03/15/17 15:36> Subjective - Date & Time of Evaluation Date of Evaluation: 03/15/17 Time of Evaluation: 07:54 - Subjective Subjective: PGY1 Medicine Note for Dr. Kemp Patient seen and examined at bedside this morning. Patient states he has some mild midline abdominal pain rated 7/10. He is not currently dry heaving/ vomiting but states is his experiencing a little bit of nausea. Barium enema w/ air contrast this AM was cancelled due to too much fecal matter - we will try again tomorrow morning. He denies any fevers, chills, chest pain, numbness or tingling. Objective - Vital Signs/Intake and Output Vital Signs (last 24 hours): Temp Pulse Resp BP Pulse Ox 98.3 F 81 20 155/81 H 97 03/14/17 23:15 03/15/17 04:04 03/14/17 23:15 03/15/17 04:48 03/14/17 23:15 Intake and Output: 03/15/17 03/15/17 06:59 18:59 Intake Total 1300 Balance 1300 - Medications Medications: Current Medications Acetaminophen (Tylenol 325mg Tab) 650 mg PO Q6 PRN PRN Reason: Fever >100.4 F Aspirin (Aspirin Chewable) 81 mg PO DAILY [facility] Last Admin: 03/14/17 09:40 Dose: 81 mg Dextrose (Dextrose 50% Inj) 0 ml IV STAT PRN; Protocol PRN Reason: Hypoglycemia Protocol Dextrose (Glutose 15) 0 gm PO ONCE PRN; Protocol PRN Reason: Hypoglycemia Protocol Famotidine (Pepcid) 20 mg IVP Q12 [facility] Last Admin: 03/14/17 21:20 Dose: 20 mg Glucagon (Glucagen Diagnostic Kit) 0 mg IM STAT PRN; Protocol PRN Reason: Hypoglycemia Protocol Sodium Chloride (Sodium Chloride 0.9%) 1,000 mls @ 75 mls/hr IV .[id number] [facility] Last Admin: 03/15/17 06:19 Dose: 75 mls/hr Potassium Chloride (Potassium Chloride 20 Meq/100 Ml) 20 meq in 100 mls @ 50 mls/hr IVPB ONCE ONE Stop: 03/15/17 09:39 Insulin Glargine (Lantus) 20 unit SC [facility] Insulin Human Regular (Novolin R) 0 unit SC ACHS [facility] PRN Reason: Protocol Last Admin: 03/14/17 21:23 Dose: Not Given Lisinopril (Zestril) 2.5 mg PO DAILY [facility] Last Admin: 03/14/17 09:40 Dose: 2.5 mg Morphine Sulfate (Morphine) 2 mg IVP Q4H PRN PRN Reason: Pain, severe (8-10) Last Admin: 03/14/17 15:51 Dose: 2 mg Ondansetron HCl (Zofran Inj) 4 mg IVP Q6 PRN PRN Reason: Nausea/Vomiting Last Admin: 03/14/17 15:51 Dose: 4 mg Rosuvastatin Calcium (Crestor) 5 mg PO HS [facility] Last Admin: 03/14/17 21:20 Dose: 5 mg - Labs Labs: 03/15/17 07:09 03/15/17 07:09 PT 10.6 SECONDS (9.7-12.2) 03/07/17 18:58 INR 1.0 03/07/17 18:58 APTT 29 SECONDS (21-34) 03/07/17 18:58 - Additional Findings Additional findings: - Constitutional Appears: Non-toxic, No Acute Distress - Head Exam Head Exam: ATRAUMATIC, NORMOCEPHALIC - Eye Exam Eye Exam: EOMI, Normal appearance - ENT Exam ENT Exam: Mucous Membranes Moist - Respiratory Exam Respiratory Exam: Clear to Ausculation Bilateral, NORMAL BREATHING PATTERN. absent: Accessory Muscle Use, Rales, Rhonchi, Wheezes, Respiratory Distress - Cardiovascular Exam Cardiovascular Exam: REGULAR RHYTHM, +S1. absent: JVD - GI/Abdominal Exam GI & Abdominal Exam: Soft, Tenderness (mild midline TTP). absent: Distended, Firm, Guarding, Rigid - Extremities Exam Extremities Exam: absent: Calf Tenderness, Pedal Edema - Neurological Exam Neurological Exam: Alert, Awake, CN II-XII Intact, Oriented x3 - Skin Skin Exam: Dry, Warm Assessment and Plan - Assessment and Plan (Free Text) Assessment: Acute colitis No leukocytosis; afebrile GI consulted, Dr. Crawford, help appreciated full liquid diet - advance as tolerated Procal - <0.05 Lipase 60 Stool Occult Blood positive C. Diff neg, Giardia neg, Stool Ova and Parasite 03/08 negative, Stool Leuk negative Blood Cultures 03/07 negative up to date Stool Culture 03/08 - no salmonella, shigella or campylobacter Urine Culture 03/12 negative CEA marker NORMAL Imaging: CT Abd/Pelvis w/ IV contrast 03/07/17 - Interval pattern suggest segmental colitis potentially affecting the splenic flexure through distal sigmoid segments without evidence of bowel perforation at this time. Consider infectious or inflammatory causes. Neoplasm and ischemia are occluded differential diagnosis though the pattern does not suggest either of these. Further clinical correlation is advised. Repeat And/Pelvis CT w/ IV contrast 03/11/17 - Thickening of the distal descending and sigmonid colon likely due to post infectoius/inflammatory colitis. Clinical correlation recommended to exclude ischemia or neoplasm. Re- demonstrated is thickening of the urinary blader likely due to incomplete distention and muscular hypertrophy. Mild prostate gland enlargement. F/U Barium Enema w/ air contrast scheduled for 03/16/17 Meds: Morphine 2 IV Q4h Zofran 4 IV Q6h PRN Reglan 10mg IV Q6h Hyponatremia, Improving Consult Nephrology, Dr [place] Fluid restriction to 1L Urine osmolality 571, Urine random sodium 75, Serum osmolality 280 Diabetes accuchecks ACHS Lantus 20 SC HS Con't home med Lisinoprilil 2.5 PO QD Crestor 5 PO HS Hypoglycemia protocol Hypokalemia, Resolved Replete as necessary Prophylactic Care DVT - SCDs, VTE contraindicated 2/2 Stool Occult Blood positive Pepcid 20mg IV q12h <Milla Kemp - Last Filed: 03/15/17 16:52> Objective - Vital Signs/Intake and Output Vital Signs (last 24 hours): Temp Pulse Resp BP Pulse Ox 98.4 F 77 20 149/80 98 03/15/17 15:00 03/15/17 16:00 03/15/17 15:00 03/15/17 15:00 03/15/17 15:00 Intake and Output: 03/15/17 03/15/17 06:59 18:59 Intake Total 1300 475 Balance 1300 475 - Medications Medications: Current Medications Acetaminophen (Tylenol 325mg Tab) 650 mg PO Q6 PRN PRN Reason: Fever >100.4 F Aspirin (Aspirin Chewable) 81 mg PO DAILY [facility] Last Admin: 03/15/17 10:52 Dose: 81 mg Bisacodyl (Dulcolax) 5 mg PO ONCE ONE Stop: 03/15/17 20:01 Dextrose (Dextrose 50% Inj) 0 ml IV STAT PRN; Protocol PRN Reason: Hypoglycemia Protocol Dextrose (Glutose 15) 0 gm PO ONCE PRN; Protocol PRN Reason: Hypoglycemia Protocol Famotidine (Pepcid) 20 mg IVP Q12 [facility] Last Admin: 03/15/17 10:52 Dose: 20 mg Glucagon (Glucagen Diagnostic Kit) 0 mg IM STAT PRN; Protocol PRN Reason: Hypoglycemia Protocol Insulin Glargine (Lantus) 20 unit SC HS [facility] Insulin Human Regular (Novolin R) 0 unit SC ACHS [facility] PRN Reason: Protocol Last Admin: 03/15/17 12:45 Dose: 4 unit Lisinopril (Zestril) 2.5 mg PO DAILY [facility] Last Admin: 03/15/17 10:52 Dose: 2.5 mg Morphine Sulfate (Morphine) 2 mg IVP Q4H PRN PRN Reason: Pain, severe (8-10) Last Admin: 03/14/17 15:51 Dose: 2 mg Ondansetron HCl (Zofran Inj) 4 mg IVP Q6 PRN PRN Reason: Nausea/Vomiting Last Admin: 03/14/17 15:51 Dose: 4 mg Rosuvastatin Calcium (Crestor) 5 mg PO HS [facility] Last Admin: 03/14/17 21:20 Dose: 5 mg - Labs Labs: 03/15/17 07:09 03/15/17 07:09 PT 10.6 SECONDS (9.7-12.2) 03/07/17 18:58 INR 1.0 03/07/17 18:58 APTT 29 SECONDS (21-34) 03/07/17 18:58 Attending/Attestation - Attestation I have personally seen and examined this patient.: Yes I have fully participated in the care of the patient.: Yes I have reviewed all pertinent clinical information, including history, physical exam and plan: Yes Notes (Text): Patient was seen and examined He has mild abdominal pain, Barium enema not done due to fecal matter Give laxatives,flett enema and prep for tomorrow need out pt colonoscopy Hyponatremia is improving,fluid restriction nephrology consult appreciated sugar is high on regular insulin coverage .due to NPO status lantus on hold 03/15/17 16:52
[2017-03-15] MEDS: (Novolin R) Insulin Human Regular 100 units/ml vial SC SCH ×4 (08:15→21:18)
--- NOTE | 2017-03-15 11:01 | RAD ---
PROCEDURE: Abdomen radiograph HISTORY: abnormal c.t SCAN COMPARISON: Abdomen radiographs 04/24/2015. CT abdomen pelvis 03/11/2017. TECHNIQUE: AP views the abdomen were obtained for purposes of sea captain images prior to barium enema FINDINGS: Bowel-gas pattern is nonspecific. [id number] amount stool noted throughout the colon. Degenerative changes noted of the spine. IMPRESSION: Moderate to large amount of stool throughout the colon. Barium enema not performed.
[2017-03-15] MEDS ORDERED: Tolvaptan 15 MG TAB PO ONE (17:30)
--- NOTE | 2017-03-15 17:32 | CP.PCM.PN ---
Subjective - Date & Time of Evaluation Date of Evaluation: 03/15/17 Time of Evaluation: 17:30 - Subjective Subjective: patient seen and examined denies any nausea vomiting diarrhea fevers chills dizziness headache numbness weakness at this time na noted 123 meq/dl. on NS overnight, fluid restriction po. urine lytes noted Objective - Vital Signs/Intake and Output Vital Signs (last 24 hours): Temp Pulse Resp BP Pulse Ox 98.4 F 77 20 149/80 98 03/15/17 15:00 03/15/17 16:00 03/15/17 15:00 03/15/17 15:00 03/15/17 15:00 Intake and Output: 03/15/17 03/15/17 06:59 18:59 Intake Total 1300 475 Balance 1300 475 - Medications Medications: Current Medications Acetaminophen (Tylenol 325mg Tab) 650 mg PO Q6 PRN PRN Reason: Fever >100.4 F Aspirin (Aspirin Chewable) 81 mg PO DAILY [facility] Last Admin: 03/15/17 10:52 Dose: 81 mg Bisacodyl (Dulcolax) 5 mg PO ONCE ONE Stop: 03/15/17 20:01 Dextrose (Dextrose 50% Inj) 0 ml IV STAT PRN; Protocol PRN Reason: Hypoglycemia Protocol Dextrose (Glutose 15) 0 gm PO ONCE PRN; Protocol PRN Reason: Hypoglycemia Protocol Famotidine (Pepcid) 20 mg IVP Q12 [facility] Last Admin: 03/15/17 10:52 Dose: 20 mg Glucagon (Glucagen Diagnostic Kit) 0 mg IM STAT PRN; Protocol PRN Reason: Hypoglycemia Protocol Insulin Glargine (Lantus) 20 unit SC HS [facility] Insulin Human Regular (Novolin R) 0 unit SC ACHS [facility] PRN Reason: Protocol Last Admin: 03/15/17 17:26 Dose: 3 unit Lisinopril (Zestril) 2.5 mg PO DAILY [facility] Last Admin: 03/15/17 10:52 Dose: 2.5 mg Morphine Sulfate (Morphine) 2 mg IVP Q4H PRN PRN Reason: Pain, severe (8-10) Last Admin: 03/14/17 15:51 Dose: 2 mg Ondansetron HCl (Zofran Inj) 4 mg IVP Q6 PRN PRN Reason: Nausea/Vomiting Last Admin: 01/01/18 15:51 Dose: 4 mg Rosuvastatin Calcium (Crestor) 5 mg PO HS [facility] Last Admin: 03/14/17 21:20 Dose: 5 mg Tolvaptan (Samsca) 15 mg PO ONCE ONE Stop: 03/15/17 17:31 - Labs Labs: 03/15/17 07:09 03/15/17 07:09 PT 10.6 SECONDS (9.7-12.2) 03/07/17 18:58 INR 1.0 03/07/17 18:58 APTT 29 SECONDS (21-34) 03/07/17 18:58 - Constitutional Appears: Non-toxic, No Acute Distress - Head Exam Head Exam: NORMAL INSPECTION, NORMOCEPHALIC - Eye Exam Eye Exam: Normal appearance Pupil Exam: PERRL - ENT Exam ENT Exam: Mucous Membranes Moist, Normal Exam - Neck Exam Neck Exam: Normal Inspection - Respiratory Exam Respiratory Exam: Clear to Ausculation Bilateral, NORMAL BREATHING PATTERN - Cardiovascular Exam Cardiovascular Exam: REGULAR RHYTHM, RRR - GI/Abdominal Exam GI & Abdominal Exam: Distended, Soft, Diminished Bowel Sounds - Extremities Exam Extremities Exam: Full ROM, Normal Inspection - Neurological Exam Neurological Exam: Alert, Awake, Oriented x3 - Psychiatric Exam Psychiatric exam: Normal Affect, Normal Mood - Skin Skin Exam: Dry, Normal Color, Warm Assessment and Plan (1) Acute colitis Status: Acute (2) DM type 2 (diabetes mellitus, type 2) Status: Acute (3) HTN (hypertension) Status: Acute (4) Hyponatremia Status: Acute - Assessment and Plan (Free Text) Assessment: hyponatremia siadh based on labs. corrected na for sugar 126 meq/dl one dose of tolvaptan ordered for today. dc iv saline check bmp daily
[2017-03-15 17:43] LABS: BLOOD UREA NITROGEN 14 mg/dL (9-20); CALCIUM 7.4 mg/dl (8.6-10.4); GFR AFRICAN-AMERICAN > 60; GFR NON-AFRICAN AMERICAN > 60
[2017-03-15] MEDS ORDERED: Bisacodyl 5mg EC Tab PO ONE (20:00)
[2017-03-16 07:35] LABS: BASO % 0.4 % (0.0-2.0); EOS # 0.1 K/uL (0.0-0.7); EOS % 1.3 % (0.0-4.0); HEMOGLOBIN 15.3 g/dL (12.0-18.0); LYMPH # 1.5 K/uL (1.0-4.3); LYMPH % 15.6 % (20.0-40.0); MEAN CELL VOLUME 87.7 fL (80.0-94.0); MEAN CORPUSCULAR HEMOGLOBIN 31.4 pg (27.0-31.0); MEAN CORPUSCULAR HGB CONC 35.8 g/dL (33.0-37.0); MEAN PLATELET VOLUME 10.5 fL (7.2-11.7); MONO # 0.7 K/uL (0.0-0.8); MONO % 7.3 % (0.0-10.0); NEUT # 7.3 K/uL (1.8-7.0); NEUT % 75.4 % (50.0-75.0); RBC 4.88 Mil/uL (4.40-5.90); RED CELL DISTRIBUTION WIDTH 14.5 % (11.5-14.5); WHITE BLOOD COUNT 9.7 K/uL (4.8-10.8)
[2017-03-16] MEDS: (Novolin R) Insulin Human Regular 100 units/ml vial SC SCH ×4 (08:00→21:43)
[2017-03-16 08:06] LABS: ALB/GLOB RATIO 1.2 (1.0-2.1); ALBUMIN 3.3 g/dL (3.5-5.0); ALT/SGPT 36 U/L (21-72); AST/SGOT 22 U/L (17-59); BLOOD UREA NITROGEN 13 mg/dL (9-20); CALCIUM 7.8 mg/dl (8.6-10.4); GFR AFRICAN-AMERICAN > 60; GFR NON-AFRICAN AMERICAN > 60
[2017-03-16] MEDS ORDERED: Barium Sulfate Susp 105% w/v, 58% w/w 1900 ml Bottle PO ONE (09:51)
--- NOTE | 2017-03-16 15:07 | CP.PCM.PN ---
Subjective - Date & Time of Evaluation Date of Evaluation: 03/16/17 Time of Evaluation: 13:00 - Subjective Subjective: mild abdominal pain persists tolerating liquids s/p tolvaptan dose, noted rise in Na no chest pain no sob no change in urine production no fever no rash no arthralgias no edema no headache Objective - Vital Signs/Intake and Output Vital Signs (last 24 hours): Temp Pulse Resp BP Pulse Ox 98.6 F 74 20 144/83 99 03/16/17 08:16 03/16/17 08:16 03/16/17 08:16 03/16/17 08:16 03/16/17 08:16 Intake and Output: 03/16/17 03/16/17 06:59 18:59 Intake Total 200 Balance 200 - Medications Medications: Current Medications Acetaminophen (Tylenol 325mg Tab) 650 mg PO Q6 PRN PRN Reason: Fever >100.4 F Aspirin (Aspirin Chewable) 81 mg PO DAILY [facility] Last Admin: 03/16/17 10:14 Dose: Not Given Dextrose (Dextrose 50% Inj) 0 ml IV STAT PRN; Protocol PRN Reason: Hypoglycemia Protocol Dextrose (Glutose 15) 0 gm PO ONCE PRN; Protocol PRN Reason: Hypoglycemia Protocol Famotidine (Pepcid) 20 mg IVP Q12 [facility] Last Admin: 03/16/17 11:49 Dose: 20 mg Glucagon (Glucagen Diagnostic Kit) 0 mg IM STAT PRN; Protocol PRN Reason: Hypoglycemia Protocol Insulin Glargine (Lantus) 20 unit SC HS [facility] Insulin Human Regular (Novolin R) 0 unit SC [facility] PRN Reason: Protocol Last Admin: 03/16/17 12:25 Dose: 6 unit Lisinopril (Zestril) 2.5 mg PO DAILY [facility] Last Admin: 03/16/17 10:14 Dose: Not Given Morphine Sulfate (Morphine) 2 mg IVP Q4H PRN PRN Reason: Pain, severe (8-10) Last Admin: 03/14/17 15:51 Dose: 2 mg Ondansetron HCl (Zofran Inj) 4 mg IVP Q6 PRN PRN Reason: Nausea/Vomiting Last Admin: 03/16/17 06:32 Dose: 4 mg Rosuvastatin Calcium (Crestor) 5 mg PO HS [facility] Last Admin: 01/02/18 22:24 Dose: 5 mg - Labs Labs: 03/16/17 07:24 03/16/17 07:24 PT 10.6 SECONDS (9.7-12.2) 03/07/17 18:58 INR 1.0 03/07/17 18:58 APTT 29 SECONDS (21-34) 03/07/17 18:58 - Constitutional Appears: No Acute Distress, Chronically Ill - Head Exam Head Exam: ATRAUMATIC, NORMAL INSPECTION - Eye Exam Eye Exam: EOMI - ENT Exam ENT Exam: Mucous Membranes Moist - Neck Exam Neck Exam: Full ROM. absent: Lymphadenopathy - Respiratory Exam Respiratory Exam: Clear to Ausculation Bilateral. absent: Accessory Muscle Use - GI/Abdominal Exam GI & Abdominal Exam: Distended, Tenderness. absent: Guarding - Extremities Exam Extremities Exam: absent: Pedal Edema - Neurological Exam Neurological Exam: Alert, Oriented x3 Assessment and Plan - Assessment and Plan (Free Text) Plan: hyponatremia, post tolvaptan dose noted normal serum osmolarity check protein electropheresis and triglycerides
--- NOTE | 2017-03-16 15:07 | RAD ---
PROCEDURE: Barium enema HISTORY: CT findings suggestive of colitis vs mass COMPARISON: CT abdomen/pelvis 03/11/2017 and 03/07/2017 TECHNIQUE: A barium enema examination was performed utilizing air-contrast technique. FINDINGS: A cutter inspector radiograph of the abdomen demonstrates no dilated bowel loops. No masses or abnormal calcifications are appreciated. Barium was introduced per rectum, under fluoroscopic monitoring. The barium was seen to flow freely to the cecum, without evidence of an obstructing or constricting lesion. The examination is suboptimal as the patient was unable to retain the insufflated air for proper distention of the colon. There is some retained fecal matter seen within the colon despite the bowel preparation. Several questionable polypoid filling defects are identified. There is a questionable polypoid mass in the proximal descending colon and 1 in the splenic flexure of the colon. There is a questionable polypoid mass in the distal ascending colon. These findings are difficult to confirm on multiple views to the limitations noted above. There is a questionable polypoid mass seen in the superior rectum. Because of the multiplicity of findings and the limited nature of this examination, evaluation with colonoscopy is advised to exclude multiple polypoid masses. IMPRESSION: Limited examination. Multiple questionable small polypoid masses, versus retained fecal matter. No constricting or obstructing lesion identified Recommend evaluation with colonoscopy.
--- NOTE | 2017-03-16 17:01 | CP.PCM.PN ---
<Dioni Garcia - Last Filed: 03/16/17 16:58> Subjective - Date & Time of Evaluation Date of Evaluation: 03/16/17 Time of Evaluation: 16:58 - Subjective Subjective: PGY1 Medicine Note for Dr. Kemp Patient seen and examined at bedside this morning. Patient states he has some mild midline abdominal pain. He is not currently dry heaving/vomiting but states is his experiencing a little bit of nausea. Status-post barium enema w/ air contrast this AM. He denies any fevers, chills, chest pain, numbness or tingling. Objective - Vital Signs/Intake and Output Vital Signs (last 24 hours): Temp Pulse Resp BP Pulse Ox 98.3 F 83 20 152/78 H 99 03/16/17 16:30 03/16/17 16:30 03/16/17 16:30 03/16/17 16:30 03/16/17 16:30 Intake and Output: 03/16/17 03/16/17 06:59 18:59 Intake Total 200 Balance 200 - Medications Medications: Current Medications Acetaminophen (Tylenol 325mg Tab) 650 mg PO Q6 PRN PRN Reason: Fever >100.4 F Aspirin (Aspirin Chewable) 81 mg PO DAILY [facility] Last Admin: 03/16/17 10:14 Dose: Not Given Dextrose (Dextrose 50% Inj) 0 ml IV STAT PRN; Protocol PRN Reason: Hypoglycemia Protocol Dextrose (Glutose 15) 0 gm PO ONCE PRN; Protocol PRN Reason: Hypoglycemia Protocol Famotidine (Pepcid) 20 mg IVP Q12 [facility] Last Admin: 03/16/17 11:49 Dose: 20 mg Glucagon (Glucagen Diagnostic Kit) 0 mg IM STAT PRN; Protocol PRN Reason: Hypoglycemia Protocol Insulin Glargine (Lantus) 20 unit SC HS [facility] Insulin Human Regular (Novolin R) 0 unit SC ACHS [facility] PRN Reason: Protocol Last Admin: 03/16/17 12:25 Dose: 6 unit Lisinopril (Zestril) 2.5 mg PO DAILY [facility] Last Admin: 03/16/17 10:14 Dose: Not Given Morphine Sulfate (Morphine) 2 mg IVP Q4H PRN PRN Reason: Pain, severe (8-10) Last Admin: 03/14/17 15:51 Dose: 2 mg Ondansetron HCl (Zofran Inj) 4 mg IVP Q6 PRN PRN Reason: Nausea/Vomiting Last Admin: 03/16/17 06:32 Dose: 4 mg Rosuvastatin Calcium (Crestor) 5 mg PO HS [facility] Last Admin: 03/15/17 22:24 Dose: 5 mg - Labs Labs: 03/16/17 07:24 03/16/17 07:24 PT 10.6 SECONDS (9.7-12.2) 03/07/17 18:58 INR 1.0 03/07/17 18:58 APTT 29 SECONDS (21-34) 03/07/17 18:58 - Additional Findings Additional findings: - Constitutional Appears: Non-toxic, No Acute Distress - Head Exam Head Exam: ATRAUMATIC, NORMOCEPHALIC - Eye Exam Eye Exam: EOMI, Normal appearance - ENT Exam ENT Exam: Mucous Membranes Moist - Respiratory Exam Respiratory Exam: Clear to Ausculation Bilateral, NORMAL BREATHING PATTERN. absent: Accessory Muscle Use, Rales, Rhonchi, Wheezes, Respiratory Distress - Cardiovascular Exam Cardiovascular Exam: REGULAR RHYTHM, +S1. absent: JVD - GI/Abdominal Exam GI & Abdominal Exam: Soft, Tenderness (mild midline TTP). absent: Distended, Firm, Guarding, Rigid - Extremities Exam Extremities Exam: absent: Calf Tenderness, Pedal Edema - Neurological Exam Neurological Exam: Alert, Awake, CN II-XII Intact, Oriented x3 - Skin Skin Exam: Dry, Warm Assessment and Plan - Assessment and Plan (Free Text) Assessment: Acute colitis No leukocytosis; afebrile GI consulted, Dr. Crawford, help appreciated full liquid diet - advance as tolerated Procal - <0.05 Lipase 60 Stool Occult Blood positive C. Diff neg, Giardia neg, Stool Ova and Parasite 03/08 negative, Stool Leuk negative Blood Cultures 03/07 negative up to date Stool Culture 03/08 - no salmonella, shigella or campylobacter Urine Culture 03/12 negative CEA marker [facility] Imaging: CT Abd/Pelvis w/ IV contrast 03/07/17 - Interval pattern suggest segmental colitis potentially affecting the splenic flexure through distal sigmoid segments without evidence of bowel perforation at this time. Consider infectious or inflammatory causes. Neoplasm and ischemia are occluded differential diagnosis though the pattern does not suggest either of these. Further clinical correlation is advised. Repeat And/Pelvis CT w/ IV contrast 03/11/17 - Thickening of the distal descending and sigmonid colon likely due to post infectoius/inflammatory colitis. Clinical correlation recommended to exclude ischemia or neoplasm. Re- demonstrated is thickening of the urinary blader likely due to incomplete distention and muscular hypertrophy. Mild prostate gland enlargement. Barium Enema w/ air contrast 03/16/17 - Limited examination. Multiple questionable small polypoid masses, versus retained fecal matter. No constricting or obstructing lesion identified. Recommend evaluation with colonoscopy. Meds: Morphine 2 IV Q4h Zofran 4 IV Q6h PRN Reglan 10mg IV Q6h Hyponatremia, Improving Consult Nephrology, Dr South Fluid restriction to 1L Urine osmolality 571, Urine random sodium 75, Serum osmolality 280 Diabetes accuchecks ACHS Lantus 20 SC HS Con't home med Lisinoprilil 2.5 PO QD Crestor 5 PO HS Hypoglycemia protocol Hypokalemia, Resolved Replete as necessary Prophylactic Care DVT - SCDs, VTE contraindicated 2/2 Stool Occult Blood positive Pepcid 20mg IV q12h <Milla Kemp - Last Filed: 03/16/17 18:09> Objective - Vital Signs/Intake and Output Vital Signs (last 24 hours): Temp Pulse Resp BP Pulse Ox 98.3 F 83 20 152/78 H 99 03/16/17 16:30 03/16/17 16:30 03/16/17 16:30 03/16/17 16:30 03/16/17 16:30 Intake and Output: 03/16/17 03/16/17 06:59 18:59 Intake Total 200 Balance 200 - Medications Medications: Current Medications Acetaminophen (Tylenol 325mg Tab) 650 mg PO Q6 PRN PRN Reason: Fever >100.4 F Aspirin (Aspirin Chewable) 81 mg PO DAILY [facility] Last Admin: 03/16/17 10:14 Dose: Not Given Dextrose (Dextrose 50% Inj) 0 ml IV STAT PRN; Protocol PRN Reason: Hypoglycemia Protocol Dextrose (Glutose 15) 0 gm PO ONCE PRN; Protocol PRN Reason: Hypoglycemia Protocol Famotidine (Pepcid) 20 mg IVP Q12 [facility] Last Admin: 03/16/17 11:49 Dose: 20 mg Glucagon (Glucagen Diagnostic Kit) 0 mg IM STAT PRN; Protocol PRN Reason: Hypoglycemia Protocol Insulin Glargine (Lantus) 20 unit SC HS [facility] Insulin Human Regular (Novolin R) 0 unit SC ACHS [facility] PRN Reason: Protocol Last Admin: 03/16/17 17:54 Dose: 8 unit Lisinopril (Zestril) 2.5 mg PO DAILY [facility] Last Admin: 03/16/17 10:14 Dose: Not Given Morphine Sulfate (Morphine) 2 mg IVP Q4H PRN PRN Reason: Pain, severe (8-10) Last Admin: 03/14/17 15:51 Dose: 2 mg Ondansetron HCl (Zofran Inj) 4 mg IVP Q6 PRN PRN Reason: Nausea/Vomiting Last Admin: 03/16/17 06:32 Dose: 4 mg Rosuvastatin Calcium (Crestor) 5 mg PO HS [facility] Last Admin: 03/15/17 22:24 Dose: 5 mg - Labs Labs: 03/16/17 07:24 03/16/17 17:22 PT 10.6 SECONDS (9.7-12.2) 03/07/17 18:58 INR 1.0 03/07/17 18:58 APTT 29 SECONDS (21-34) 03/07/17 18:58 Attending/Attestation - Attestation I have personally seen and examined this patient.: Yes I have fully participated in the care of the patient.: Yes I have reviewed all pertinent clinical information, including history, physical exam and plan: Yes Notes (Text): Patient was seen and examined Discussed with the resident in detail s/p Barium enema after colon prep,results noted.Patient needs colonoscopy to r/ o malignancy we will follow with Gastro enterologist Monitor sodium and continue fluid restriction I agree with the assessment and the plan of the resident
[2017-03-16 17:47] LABS: BLOOD UREA NITROGEN 12 mg/dL (9-20); CALCIUM 7.7 mg/dl (8.6-10.4); GFR AFRICAN-AMERICAN > 60; GFR NON-AFRICAN AMERICAN > 60
[2017-03-17 07:34] LABS: BASO % 0.4 % (0.0-2.0); EOS # 0.3 K/uL (0.0-0.7); EOS % 2.7 % (0.0-4.0); HEMOGLOBIN 14.4 g/dL (12.0-18.0); MEAN CELL VOLUME 89.5 fL (80.0-94.0); MEAN CORPUSCULAR HEMOGLOBIN 30.8 pg (27.0-31.0); MEAN CORPUSCULAR HGB CONC 34.4 g/dL (33.0-37.0); MEAN PLATELET VOLUME 10.8 fL (7.2-11.7); MONO # 0.7 K/uL (0.0-0.8); MONO % 6.4 % (0.0-10.0); NEUT # 7.1 K/uL (1.8-7.0); NEUT % 70.5 % (50.0-75.0); RBC 4.67 Mil/uL (4.40-5.90); RED CELL DISTRIBUTION WIDTH 14.2 % (11.5-14.5); WHITE BLOOD COUNT 10.1 K/uL (4.8-10.8)
[2017-03-17 07:48] LABS: ALB/GLOB RATIO 1.2 (1.0-2.1); ALBUMIN 3.2 g/dL (3.5-5.0); ALT/SGPT 38 U/L (21-72); AST/SGOT 14 U/L (17-59); BLOOD UREA NITROGEN 13 mg/dL (9-20); CALCIUM 7.9 mg/dl (8.6-10.4); GFR AFRICAN-AMERICAN > 60; GFR NON-AFRICAN AMERICAN > 60
[2017-03-17] MEDS: (Novolin R) Insulin Human Regular 100 units/ml vial SC SCH ×4 (08:19→21:42)
--- NOTE | 2017-03-17 13:09 | CP.PCM.PN ---
<Dioni Garcia - Last Filed: 03/17/17 13:20> Subjective - Date & Time of Evaluation Date of Evaluation: 03/17/17 Time of Evaluation: 13:05 - Subjective Subjective: PGY-[address] Kemp. No acute events noted overnight. Patient states his abdominal pain is much improved. He currently does not have any other complaints. He denies cp, abd pain, sob, f/c, n/v/d/c. Objective - Vital Signs/Intake and Output Vital Signs (last 24 hours): Temp Pulse Resp BP Pulse Ox 98.8 F 73 20 110/67 99 03/16/17 23:20 03/16/17 23:20 03/16/17 23:20 03/16/17 23:20 03/16/17 23:20 - Medications Medications: Current Medications Acetaminophen (Tylenol 325mg Tab) 650 mg PO Q6 PRN PRN Reason: Fever >100.4 F Aspirin (Aspirin Chewable) 81 mg PO DAILY [facility] Last Admin: 03/17/17 09:24 Dose: 81 mg Dextrose (Dextrose 50% Inj) 0 ml IV STAT PRN; Protocol PRN Reason: Hypoglycemia Protocol Dextrose (Glutose 15) 0 gm PO ONCE PRN; Protocol PRN Reason: Hypoglycemia Protocol Famotidine (Pepcid) 20 mg IVP Q12 [facility] Last Admin: 03/17/17 09:24 Dose: 20 mg Glucagon (Glucagen Diagnostic Kit) 0 mg IM STAT PRN; Protocol PRN Reason: Hypoglycemia Protocol Insulin Glargine (Lantus) 40 unit SC HS [facility] Insulin Human Regular (Novolin R) 0 unit SC ACHS [facility] PRN Reason: Protocol Last Admin: 03/17/17 12:19 Dose: 4 unit Lisinopril (Zestril) 2.5 mg PO DAILY [facility] Last Admin: 03/17/17 09:25 Dose: 2.5 mg Ondansetron HCl (Zofran Inj) 4 mg IVP Q6 PRN PRN Reason: Nausea/Vomiting Last Admin: 03/16/17 06:32 Dose: 4 mg Rosuvastatin Calcium (Crestor) 5 mg PO HS [facility] Last Admin: 03/16/17 21:42 Dose: 5 mg - Labs Labs: 03/17/17 07:16 03/17/17 07:16 PT 10.6 SECONDS (9.7-12.2) 03/07/17 18:58 INR 1.0 03/07/17 18:58 APTT 29 SECONDS (21-34) 03/07/17 18:58 - Additional Findings Additional findings: - Constitutional Appears: Non-toxic, No Acute Distress - Head Exam Head Exam: ATRAUMATIC, NORMOCEPHALIC - Eye Exam Eye Exam: EOMI, Normal appearance - ENT Exam ENT Exam: Mucous Membranes Moist - Respiratory Exam Respiratory Exam: Clear to Ausculation Bilateral, NORMAL BREATHING PATTERN. absent: Accessory Muscle Use, Rales, Rhonchi, Wheezes, Respiratory Distress - Cardiovascular Exam Cardiovascular Exam: REGULAR RHYTHM, +S1. absent: JVD - GI/Abdominal Exam GI & Abdominal Exam: Soft, Tenderness (mild midline TTP). absent: Distended, Firm, Guarding, Rigid - Extremities Exam Extremities Exam: absent: Calf Tenderness, Pedal Edema - Neurological Exam Neurological Exam: Alert, Awake, CN II-XII Intact, Oriented x3 - Skin Skin Exam: Dry, Warm Assessment and Plan - Assessment and Plan (Free Text) Assessment: Acute colitis No leukocytosis; afebrile GI consulted, Dr. Crawford, help appreciated full liquid diet - advance as tolerated Procal - <0.05 Lipase 60 Stool Occult Blood positive C. Diff neg, Giardia neg, Stool Ova and Parasite 03/08 negative, Stool Leuk negative Blood Cultures 03/07 negative up to date Stool Culture 03/08 - no salmonella, shigella or campylobacter Urine Culture 03/12 negative CEA marker [facility] Imaging: CT Abd/Pelvis w/ IV contrast 03/07/17 - Interval pattern suggest segmental colitis potentially affecting the splenic flexure through distal sigmoid segments without evidence of bowel perforation at this time. Consider infectious or inflammatory causes. Neoplasm and ischemia are occluded differential diagnosis though the pattern does not suggest either of these. Further clinical correlation is advised. Repeat And/Pelvis CT w/ IV contrast 03/11/17 - Thickening of the distal descending and sigmonid colon likely due to post infectoius/inflammatory colitis. Clinical correlation recommended to exclude ischemia or neoplasm. Re- demonstrated is thickening of the urinary blader likely due to incomplete distention and muscular hypertrophy. Mild prostate gland enlargement. Barium Enema w/ air contrast 03/16/17 - Limited examination. Multiple questionable small polypoid masses, versus retained fecal matter. No constricting or obstructing lesion identified. Recommend evaluation with colonoscopy. Meds: Morphine 2 IV Q4h Zofran 4 IV Q6h PRN Reglan 10mg IV Q6h Hyponatremia, Improving Consult Nephrology, Dr South * Hyponatremia siadh based on labs Fluid restriction to 1L s/p Tolvaptan 15mg PO ONCE 03/15/17 Urine osmolality 571, Urine random sodium 75, Serum osmolality 280 Diabetes accuchecks ACHS Lantus 40 SC HS Con't home med Lisinoprilil 2.5 PO QD Crestor 5 PO HS HOLD home med metformin 1000mg PO BID Lisinopril 2.5mg PO QD Hypoglycemia protocol Hypokalemia, Resolved Replete as necessary Prophylactic Care DVT - SCDs, VTE contraindicated 2/2 Stool Occult Blood positive Pepcid 20mg IV q12h Disposition: Patient will need a Colonoscopy outpatient. <Milla Kemp - Last Filed: 03/17/17 13:46> Objective - Vital Signs/Intake and Output Vital Signs (last 24 hours): Temp Pulse Resp BP Pulse Ox 98.8 F 73 20 110/67 99 03/16/17 23:20 03/16/17 23:20 03/16/17 23:20 03/16/17 23:20 03/16/17 23:20 - Medications Medications: Current Medications Acetaminophen (Tylenol 325mg Tab) 650 mg PO Q6 PRN PRN Reason: Fever >100.4 F Aspirin (Aspirin Chewable) 81 mg PO DAILY [facility] Last Admin: 03/17/17 09:24 Dose: 81 mg Dextrose (Dextrose 50% Inj) 0 ml IV STAT PRN; Protocol PRN Reason: Hypoglycemia Protocol Dextrose (Glutose 15) 0 gm PO ONCE PRN; Protocol PRN Reason: Hypoglycemia Protocol Famotidine (Pepcid) 20 mg IVP Q12 [facility] Last Admin: 03/17/17 09:24 Dose: 20 mg Glucagon (Glucagen Diagnostic Kit) 0 mg IM STAT PRN; Protocol PRN Reason: Hypoglycemia Protocol Insulin Glargine (Lantus) 40 unit SC HS [facility] Insulin Human Regular (Novolin R) 0 unit SC ACHS [facility] PRN Reason: Protocol Last Admin: 03/17/17 12:19 Dose: 4 unit Lisinopril (Zestril) 2.5 mg PO DAILY [facility] Last Admin: 03/17/17 09:25 Dose: 2.5 mg Ondansetron HCl (Zofran Inj) 4 mg IVP Q6 PRN PRN Reason: Nausea/Vomiting Last Admin: 03/16/17 06:32 Dose: 4 mg Rosuvastatin Calcium (Crestor) 5 mg PO HS [facility] Last Admin: 03/16/17 21:42 Dose: 5 mg - Labs Labs: 03/17/17 07:16 03/17/17 07:16 PT 10.6 SECONDS (9.7-12.2) 03/07/17 18:58 INR 1.0 03/07/17 18:58 APTT 29 SECONDS (21-34) 03/07/17 18:58 Attending/Attestation - Attestation I have personally seen and examined this patient.: Yes I have fully participated in the care of the patient.: Yes I have reviewed all pertinent clinical information, including history, physical exam and plan: Yes Notes (Text): patient was seen and examined,Abdominal pain is better,no nausea,no vomting Barium enema study is linited due to fecal matter patient was exaplained about getting colonoscopy as an out pt.He was asked to follow medical clinic downstairs after discharge His corrected sodium is 128.S/p Tolvaptan.has normal TG,we will follow nephrology,follow sodium tomorrow.continue fluid restriction possible d/c home tomorrow if sodium is ok 03/17/17 13:46
[2017-03-17 17:18] LABS: BLOOD UREA NITROGEN 15 mg/dL (9-20); CALCIUM 7.6 mg/dl (8.6-10.4); GFR AFRICAN-AMERICAN > 60; GFR NON-AFRICAN AMERICAN > 60
[2017-03-17] MEDS: (Lantus) Insulin Glargine, Recombinant SC SCH (21:42)
[2017-03-17] MEDS ORDERED: Tolvaptan 15 MG TAB PO ONE (22:00)
[2017-03-18 07:36] LABS: BASO # 0.1 K/uL (0.0-0.2); EOS # 0.3 K/uL (0.0-0.7); HEMOGLOBIN 13.2 g/dL (12.0-18.0); LYMPH # 1.7 K/uL (1.0-4.3); LYMPH % 20.1 % (20.0-40.0); MEAN CELL VOLUME 89.8 fL (80.0-94.0); MEAN CORPUSCULAR HEMOGLOBIN 31.4 pg (27.0-31.0); MEAN PLATELET VOLUME 9.9 fL (7.2-11.7); MONO # 0.6 K/uL (0.0-0.8); MONO % 7.3 % (0.0-10.0); NEUT # 5.7 K/uL (1.8-7.0); NEUT % 68.6 % (50.0-75.0); RBC 4.19 Mil/uL (4.40-5.90); RED CELL DISTRIBUTION WIDTH 14.8 % (11.5-14.5); WHITE BLOOD COUNT 8.3 K/uL (4.8-10.8)
[2017-03-18] MEDS: (Novolin R) Insulin Human Regular 100 units/ml vial SC SCH ×4 (08:25→21:53)
[2017-03-18 08:54] LABS: ALB/GLOB RATIO 1.3 (1.0-2.1); ALT/SGPT 31 U/L (21-72); AST/SGOT 17 U/L (17-59); BLOOD UREA NITROGEN 16 mg/dL (9-20); GFR AFRICAN-AMERICAN > 60; GFR NON-AFRICAN AMERICAN > 60
[2017-03-18 08:58] LABS: ALBUMIN (PEP) 3.3 g/dL (3.8-4.8); ALPHA-1-GLOBULIN (PEP) 0.2 g/dL (0.2-0.3)
--- NOTE | 2017-03-18 09:28 | CP.PCM.PN ---
Subjective - Date & Time of Evaluation Date of Evaluation: 03/18/17 Time of Evaluation: 09:26 - Subjective Subjective: given tovalptan for SIADH Na increased to 130 parameters c/w SIADH no new complaint Objective - Vital Signs/Intake and Output Vital Signs (last 24 hours): Temp Pulse Resp BP Pulse Ox 98.2 F 71 20 112/69 98 03/17/17 23:20 03/17/17 23:20 03/17/17 23:20 03/17/17 23:20 03/17/17 23:20 Intake and Output: 03/18/17 03/18/17 06:59 18:59 Intake Total 0 Balance 0 - Medications Medications: Current Medications Acetaminophen (Tylenol 325mg Tab) 650 mg PO Q6 PRN PRN Reason: Fever >100.4 F Aspirin (Aspirin Chewable) 81 mg PO DAILY [facility] Last Admin: 03/18/17 09:25 Dose: 81 mg Dextrose (Dextrose 50% Inj) 0 ml IV STAT PRN; Protocol PRN Reason: Hypoglycemia Protocol Dextrose (Glutose 15) 0 gm PO ONCE PRN; Protocol PRN Reason: Hypoglycemia Protocol Famotidine (Pepcid) 20 mg IVP Q12 [facility] Last Admin: 03/18/17 09:25 Dose: 20 mg Glucagon (Glucagen Diagnostic Kit) 0 mg IM STAT PRN; Protocol PRN Reason: Hypoglycemia Protocol Insulin Glargine (Lantus) 40 unit SC [facility] Last Admin: 03/17/17 21:42 Dose: 40 units Insulin Human Regular (Novolin R) 0 unit SC [facility] PRN Reason: Protocol Last Admin: 03/18/17 08:25 Dose: 6 unit Lisinopril (Zestril) 2.5 mg PO DAILY [facility] Last Admin: 03/18/17 09:25 Dose: 2.5 mg Ondansetron HCl (Zofran Inj) 4 mg IVP Q6 PRN PRN Reason: Nausea/Vomiting Last Admin: 03/16/17 06:32 Dose: 4 mg Rosuvastatin Calcium (Crestor) 5 mg PO [facility] Last Admin: 03/17/17 21:41 Dose: 5 mg - Labs Labs: 03/18/17 07:25 03/18/17 07:25 PT 10.6 SECONDS (9.7-12.2) 12/25/17 18:58 INR 1.0 03/07/17 18:58 APTT 29 SECONDS (21-34) 03/07/17 18:58 - Constitutional Appears: No Acute Distress, Chronically Ill - Head Exam Head Exam: ATRAUMATIC, NORMAL INSPECTION - Eye Exam Eye Exam: EOMI, Normal appearance - Neck Exam Neck Exam: Normal Inspection. absent: Tenderness - Respiratory Exam Respiratory Exam: Clear to Ausculation Bilateral, NORMAL BREATHING PATTERN - Cardiovascular Exam Cardiovascular Exam: REGULAR RHYTHM, +S1 - GI/Abdominal Exam GI & Abdominal Exam: Soft. absent: Tenderness - Extremities Exam Extremities Exam: Normal Inspection. absent: Tenderness - Neurological Exam Neurological Exam: Alert, CN II-XII Intact - Skin Skin Exam: Dry. absent: Warm Assessment and Plan (1) HTN (hypertension) Status: Acute (2) DM type 2 (diabetes mellitus, type 2) Status: Acute (3) Hyponatremia Status: Acute (4) CVA (cerebral vascular accident) Status: Acute (5) SIADH (syndrome of inappropriate ADH production) Status: Acute - Assessment and Plan (Free Text) Plan: fluid restriction if na drops will repeat tovalptan dose
--- NOTE | 2017-03-18 14:25 | CP.PCM.DIS ---
<Dioni Garcia - Last Filed: 03/18/17 14:22> Provider - Provider Date of Admission: 03/07/17 21:55 Attending physician: Milla Kemp MD Primary care physician: NO FAMILY PROVIDER Consults: Nephrology - Dr Park-Eugene GI - Dr Crawford Time Spent in preparation of Discharge (in minutes): 47 Hospital Course - Lab Results Lab Results: Micro Results 03/12/17 09:51 Urine Urine Culture - Final No Growth (<1,000 CFU/ML) 03/07/17 22:30 Blood-Venous Blood Culture - Final NO GROWTH AFTER 5 DAYS 03/07/17 22:30 Blood-Venous Gram Stain - Final TEST NOT PERFORMED 03/07/17 22:00 Blood-Venous Blood Culture - Final NO GROWTH AFTER 5 DAYS 03/07/17 22:00 Blood-Venous Gram Stain - Final TEST NOT PERFORMED 03/08/17 14:26 Stool Ova and Parasite Concentrate Exam - Final 03/08/17 14:26 Stool Stool Culture - Final NO SALMONELLA, SHIGELLA OR CAMPYLOBACTER ISOLATED. 03/07/17 Unknown Urine,Clean Catch Urine Culture - Final MULTIPLE SPECIES. SUGGEST REPEAT SPECIMEN. Most Recent Lab Values WBC 8.3 K/uL (4.8-10.8) 03/18/17 07:25 RBC 4.19 Mil/uL (4.40-5.90) L 03/18/17 07:25 Hgb 13.2 g/dL (12.0-18.0) 03/18/17 07:25 Hct 37.6 % (35.0-51.0) 03/18/17 07:25 MCV 89.8 fL (80.0-94.0) 03/18/17 07:25 MCH 31.4 pg (27.0-31.0) H 03/18/17 07:25 MCHC 35.0 g/dL (33.0-37.0) 03/18/17 07:25 RDW 14.8 % (11.5-14.5) H 03/18/17 07:25 Plt Count 290 K/uL (130-400) 03/18/17 07:25 MPV 9.9 fL (7.2-11.7) 03/18/17 07:25 Neut % (Auto) 68.6 % (50.0-75.0) 03/18/17 07:25 Lymph % (Auto) 20.1 % (20.0-40.0) 03/18/17 07:25 Dewey % (Auto) 7.3 % (0.0-10.0) 03/18/17 07:25 Eos % (Auto) 3.0 % (0.0-4.0) 03/18/17 07:25 Baso % (Auto) 1.0 % (0.0-2.0) 03/18/17 07:25 Neut # 5.7 K/uL (1.8-7.0) 03/18/17 07:25 Lymph # 1.7 K/uL (1.0-4.3) 03/18/17 07:25 Dewey # 0.6 K/uL (0.0-0.8) 03/18/17 07:25 Eos # 0.3 K/uL (0.0-0.7) 03/18/17 07:25 Baso # 0.1 K/uL (0.0-0.2) 03/18/17 07:25 Neutrophils % (Manual) 93 % (50-75) H 03/09/17 08:31 Band Neutrophils % 5 % (0-2) H 03/08/17 07:17 Lymphocytes % (Manual) 6 % (20-40) L 03/09/17 08:31 Reactive Lymphs % TEST NOT PERFORMED 03/08/17 07:17 Monocytes % (Manual) 1 % (0-10) 03/09/17 08:31 Toxic Granulation Present 03/07/17 18:58 Platelet Estimate Normal (NORMAL) 03/09/17 08:31 Large Platelets Present 03/09/17 08:31 RBC Morphology Normal 03/07/17 18:58 Poikilocytosis (manual Slight 03/08/17 07:17 Anisocytosis (manual) Slight 03/08/17 07:17 Ovalocytes Slight 03/08/17 07:17 PT 10.6 SECONDS (9.7-12.2) 03/07/17 18:58 INR 1.0 03/07/17 18:58 APTT 29 SECONDS (21-34) 03/07/17 18:58 Sodium 130 mmol/L (132-148) L 03/18/17 07:25 Potassium 4.0 mmol/L (3.6-5.2) 03/18/17 07:25 Chloride 96 mmol/L (98-107) L 03/18/17 07:25 Carbon Dioxide 27 mmol/L (22-30) 03/18/17 07:25 Anion Gap 12 (10-20) 03/18/17 07:25 BUN 16 mg/dL (9-20) 03/18/17 07:25 Creatinine 1.0 mg/dL (0.8-1.5) 03/18/17 07:25 Est GFR ( Amer) > 60 03/18/17 07:25 Est GFR (Non-Af Amer) > 60 03/18/17 07:25 POC Glucose (mg/dL) 224 mg/dL (65-110) H 03/18/17 12:00 Random Glucose 354 mg/dL (75-110) H 03/18/17 07:25 Hemoglobin A1c 9.5 % (4.2-6.5) H 03/18/17 07:25 Serum Osmolality 280 mosm/kg (272-300) 03/14/17 11:40 Uric Acid 2.2 mg/dL (3.5-8.5) L 03/14/17 16:47 Calcium 8.0 mg/dl (8.6-10.4) L 03/18/17 07:25 Total Bilirubin 0.3 mg/dL (0.2-1.3) 03/18/17 07:25 AST 17 U/L (17-59) D 03/18/17 07:25 ALT 31 U/L (21-72) 03/18/17 07:25 Alkaline Phosphatase 73 U/L (38-126) 03/18/17 07:25 Troponin I < 0.0120 ng/mL (0.00-0.120) 03/07/17 18:58 Total Protein 5.3 g/dL (6.3-8.3) L 03/18/17 07:25 Total Protein (PEP) 5.6 g/dL (6.1-8.1) L 03/16/17 17:22 Albumin 3.0 g/dL (3.5-5.0) L 03/18/17 07:25 Albumin (PEP) 3.3 g/dL (3.8-4.8) L 03/16/17 17:22 Globulin 2.4 gm/dL (2.2-3.9) 03/18/17 07:25 Albumin/Globulin Ratio 1.3 (1.0-2.1) 03/18/17 07:25 Kdyin-3-Jydprlsyf 0.2 g/dL (0.2-0.3) 03/16/17 17:22 Rsawd-9-Gcsvpwcfx 0.7 g/dL (0.5-0.9) 03/16/17 17:22 Qykw-4-Kitgdych 0.4 g/dL (0.4-0.6) 03/16/17 17:22 Ezzr-8-Dussayih 0.4 g/dL (0.2-0.5) 03/16/17 17:22 Gamma Globulins 0.6 g/dL (0.8-1.7) L 03/16/17 17:22 Abnorm Protein Band 1 TEST NOT PERFORMED 03/16/17 17:22 Abnorm Protein Band 2 TEST NOT PERFORMED 03/16/17 17:22 Abnorm Protein Band 3 TEST NOT PERFORMED 03/16/17 17:22 Triglycerides 120 mg/dL (0-149) D 03/16/17 17:22 Cholesterol 137 mg/dL (0-199) 03/16/17 17:22 Lipase 60 U/L (23-300) 03/07/17 18:58 Carcinoembryonic Ag 2.1 ng/mL (0-3.0) 03/10/17 07:30 Procalcitonin < 0.05 NG/ML (0.19-0.49) L 03/08/17 09:22 Urine Color Straw (YELLOW) 03/07/17 22:49 Urine Clarity Hazy (Clear) 03/07/17 22:49 Urine pH 6.0 (5.0-8.0) 03/07/17 22:49 Ur Specific [place] 1.029 (1.003-1.030) 03/07/17 22:49 Urine Protein 2+ mg/dL (NEGATIVE) H 03/07/17 22:49 Urine Glucose (UA) 3+ mg/dL (Normal) H 03/07/17 22:49 Urine Ketones Negative mg/dL (NEGATIVE) 03/07/17 22:49 Urine Blood 1+ (NEGATIVE) H 03/07/17 22:49 Urine Nitrate Negative (NEGATIVE) 03/07/17 22:49 Urine Bilirubin Negative (NEGATIVE) 03/07/17 22:49 Urine Urobilinogen Normal mg/dL (0.2-1.0) 03/07/17 22:49 Ur Leukocyte Esterase 1+ Gabi/uL (Negative) H 03/07/17 22:49 Urine WBC (Auto) 10 /hpf (0-5) H 03/07/17 22:49 Urine RBC (Auto) 20 /hpf (0-3) H 03/07/17 22:49 Ur Squamous Epith Cells 2 /hpf (0-5) 03/07/17 22:49 Urine Bacteria Few (<OCC) H 03/07/17 22:49 Urine Osmolality 571 mosm/kg (300-1000) 03/14/17 14:46 Ur Random Sodium 75 mmol/L 03/14/17 14:46 Stool Occult Blood Positive (NEGATIVE) H 03/07/17 18:45 Stool Leukocytes, Qual Negative (NEGATIVE) 03/08/17 14:26 CHASE & SPEP Interp See note 03/16/17 17:22 C. difficile Ag & Toxin Negative (NEGATIVE) 03/08/17 14:26 Giardia Antigen Not detected (Not Detected) 03/08/17 14:23 Blood Type O POSITIVE 03/07/17 18:58 Antibody Screen Negative 03/07/17 18:58 - Hospital Course Hospital Course: Medicine H/P CC: Vomiting/Diarrhea/Abdominal Pain HPI: Patient is a 57M with a PMH of stroke, DM who comes to the ED with a 1 days history of vomiting and diarrhea. He is having blood in the diarrhea. No blood in the vomit. Ate chicken yesterday and then later that night had 4 episodes of diarrhea. Had 7 episodes of diarrhea today. Denies fever, chills, chest pain, SOB. Denies sick contacts, Denies recent travel. Everyone else who ate the chicken is currently not sick. Nothing makes it better or worse. He was currently vomiting in the ED when I saw him. ROS: Per HPI PMH: DM, Stroke PSH: L. leg surgery FH: unremarkable SH: Denies smoking, drinking, drugs All: none HOSPITAL COURSE: Based on imaging (imaging results shown below), this patient had acute colitis. His WBC was elevated at first but returned to normal after a couple of days, he never had a fever while in the hospital. Ciprofloxacin and Metronidazole were given for 4 days and then were discontinued as it was postulated that the antibiotics were exacerbating his symptoms. He was given morphine, zofran and reglan to control his pain and nausea/vomiting. Stool studies were ordered and were negative. His procalcitonin was also negative. Blood culture, stool culture and urine culture were also all negative. CEA marker was normal. Lipase was normal. GI, Dr Crawford, was consulted who recommended a Barium enema w/ air contrast which showed multiple questionable small polypoid masses, however this was a limited study due to fecal retention and a colonoscopy was recommended. Dr Crawford recommended an outpatient colonoscopy. His symptoms improved during his stay and by the end he was tolerating a full liquid diet. The patient also had hyponatremia. Nephrology, Dr Riddle, was consulted ( other nephrologists covered for him and saw the patient). Labs were ordered and were indicative of an SIADH picture - he was fluid restricted to 1L and one dose of tolvaptan was given which improved his sodium. He never had symptoms secondary to his hyponatremia. His sodium was 130 on discharge. The diabetes was controlled with RISS/accuchecks and continuing his home medications. Some fluctuations in glucose occurred due to the patient being npo at times during his stay. Acute colitis No leukocytosis; afebrile GI consulted, Dr. Crawford, help appreciated full liquid diet - advance as tolerated Procal - <0.05 Lipase 60 Stool Occult Blood positive C. Diff neg, Giardia neg, Stool Ova and Parasite 03/08 negative, Stool Leuk negative Blood Cultures 03/07 negative up to date Stool Culture 03/08 - no salmonella, shigella or campylobacter Urine Culture 03/12 negative CEA marker NORMAL Imaging: CT Abd/Pelvis w/ IV contrast 03/07/17 - Interval pattern suggest segmental colitis potentially affecting the splenic flexure through distal sigmoid segments without evidence of bowel perforation at this time. Consider infectious or inflammatory causes. Neoplasm and ischemia are occluded differential diagnosis though the pattern does not suggest either of these. Further clinical correlation is advised. Repeat And/Pelvis CT w/ IV contrast 03/11/17 - Thickening of the distal descending and sigmonid colon likely due to post infectoius/inflammatory colitis. Clinical correlation recommended to exclude ischemia or neoplasm. Re- demonstrated is thickening of the urinary blader likely due to incomplete distention and muscular hypertrophy. Mild prostate gland enlargement. Barium Enema w/ air contrast 03/16/17 - Limited examination. Multiple questionable small polypoid masses, versus retained fecal matter. No constricting or obstructing lesion identified. Recommend evaluation with colonoscopy. Meds: Morphine 2 IV Q4h Zofran 4 IV Q6h PRN Reglan 10mg IV Q6h Hyponatremia, Improving Consult Nephrology, Dr Riddle * Hyponatremia SIADH based on labs Fluid restriction to 1L s/p Tolvaptan 15mg PO on 03/15/17 AND 03/17/17 Urine osmolality 571, Urine random sodium 75, Serum osmolality 280 Na 130 on discharge Diabetes accuchecks ACHS Lantus 40 SC HS Con't home med Lisinoprilil 2.5 PO QD Crestor 5 PO HS HOLD home med metformin 1000mg PO BID Lisinopril 2.5mg PO QD Hypoglycemia protocol Hypokalemia, Resolved Replete as necessary Prophylactic Care DVT - SCDs, VTE contraindicated 2/2 Stool Occult Blood positive Pepcid 20mg IV q12h Disposition: Patient will need a Colonoscopy outpatient. Discharge Exam - Head Exam Head Exam: ATRAUMATIC, NORMAL INSPECTION - Additional Findings Additional findings: - Constitutional Appears: Non-toxic, No Acute Distress - Head Exam Head Exam: ATRAUMATIC, NORMOCEPHALIC - Eye Exam Eye Exam: EOMI, Normal appearance - ENT Exam ENT Exam: Mucous Membranes Moist - Respiratory Exam Respiratory Exam: Clear to Ausculation Bilateral, NORMAL BREATHING PATTERN. absent: Accessory Muscle Use, Rales, Rhonchi, Wheezes, Respiratory Distress - Cardiovascular Exam Cardiovascular Exam: REGULAR RHYTHM, +S1. absent: JVD - GI/Abdominal Exam GI & Abdominal Exam: Soft, Tenderness (mild midline TTP). absent: Distended, Firm, Guarding, Rigid - Extremities Exam Extremities Exam: absent: Calf Tenderness, Pedal Edema - Neurological Exam Neurological Exam: Alert, Awake, CN II-XII Intact, Oriented x3 - Skin Skin Exam: Dry, Warm Discharge Plan - Discharge Medications Prescriptions: Aspirin [Aspirin Chewable] 81 mg PO DAILY #30 ctb Ergocalciferol [Drisdol 50,000 Intl Units Cap] 1 cap PO Q7D #11 cap Gabapentin [Neurontin] 600 mg PO BID 30 Days #60 tab Gemfibrozil 600 mg PO Q12 #60 tablet Lisinopril 2.5 mg PO DAILY #30 tablet MetFORMIN [glucoPHAGE] 1,000 mg PO BID 30 Days #60 tab Pantoprazole Sodium [Protonix] 40 mg PO BID 30 Days #60 tablet. Simvastatin 40 mg PO DAILY #30 tablet - Follow Up Plan Condition: GOOD Disposition: HOME/ ROUTINE Additional Instructions: Patient is medically stable for discharge. Patient will be given scripts for the following medications which he should take as instructed: 1. Aspirin 81mg PO QD 2. Ergocalciferol 50,000u 1 cap PO Q7D 3. Neurontin 600mg PO BID 4. Gemfibrozil 600mg PO BID 5. Lisinopril 2.5mg PO QD 6. Metformin 1000mg PO BID 7. Protonix 40mg PO BID 8. Simvastatin 40mg PO QD Patient should follow-up with the [facility] (Ph: [phone]) so he can be referred to a GI doctor as he is in need of a colonoscopy to rule out a malignancy. Patient should follow-up with the [facility] (Ph: [phone]) so he may attain refills of his medications. If symptoms worsen or return, please promptly return to the ER. Referrals: FAMILY PROVIDER,NO [Primary Care Provider] - <Milla Kemp - Last Filed: 03/18/17 15:05> Provider - Provider Date of Admission: 03/07/17 21:55 Attending physician: Milla Kemp MD Primary care physician: NO FAMILY PROVIDER Hospital Course - Lab Results Lab Results: Micro Results 03/12/17 09:51 Urine Urine Culture - Final No Growth (<1,000 CFU/ML) 03/07/17 22:30 Blood-Venous Blood Culture - Final NO GROWTH AFTER 5 DAYS 03/07/17 22:30 Blood-Venous Gram Stain - Final TEST NOT PERFORMED 03/07/17 22:00 Blood-Venous Blood Culture - Final NO GROWTH AFTER 5 DAYS 03/07/17 22:00 Blood-Venous Gram Stain - Final TEST NOT PERFORMED 03/08/17 14:26 Stool Ova and Parasite Concentrate Exam - Final 03/08/17 14:26 Stool Stool Culture - Final NO SALMONELLA, SHIGELLA OR CAMPYLOBACTER ISOLATED. 03/07/17 Unknown Urine,Clean Catch Urine Culture - Final MULTIPLE SPECIES. SUGGEST REPEAT SPECIMEN. Most Recent Lab Values WBC 8.3 K/uL (4.8-10.8) 03/18/17 07:25 RBC 4.19 Mil/uL (4.40-5.90) L 03/18/17 07:25 Hgb 13.2 g/dL (12.0-18.0) 03/18/17 07:25 Hct 37.6 % (35.0-51.0) 03/18/17 07:25 MCV 89.8 fL (80.0-94.0) 03/18/17 07:25 MCH 31.4 pg (27.0-31.0) H 03/18/17 07:25 MCHC 35.0 g/dL (33.0-37.0) 03/18/17 07:25 RDW 14.8 % (11.5-14.5) H 03/18/17 07:25 Plt Count 290 K/uL (130-400) 03/18/17 07:25 MPV 9.9 fL (7.2-11.7) 03/18/17 07:25 Neut % (Auto) 68.6 % (50.0-75.0) 03/18/17 07:25 Lymph % (Auto) 20.1 % (20.0-40.0) 03/18/17 07:25 Dewey % (Auto) 7.3 % (0.0-10.0) 03/18/17 07:25 Eos % (Auto) 3.0 % (0.0-4.0) 03/18/17 07:25 Baso % (Auto) 1.0 % (0.0-2.0) 03/18/17 07:25 Neut # 5.7 K/uL (1.8-7.0) 03/18/17 07:25 Lymph # 1.7 K/uL (1.0-4.3) 03/18/17 07:25 Dewey # 0.6 K/uL (0.0-0.8) 03/18/17 07:25 Eos # 0.3 K/uL (0.0-0.7) 03/18/17 07:25 Baso # 0.1 K/uL (0.0-0.2) 03/18/17 07:25 Neutrophils % (Manual) 93 % (50-75) H 03/09/17 08:31 Band Neutrophils % 5 % (0-2) H 03/08/17 07:17 Lymphocytes % (Manual) 6 % (20-40) L 03/09/17 08:31 Reactive Lymphs % TEST NOT PERFORMED 03/08/17 07:17 Monocytes % (Manual) 1 % (0-10) 03/09/17 08:31 Toxic Granulation Present 03/07/17 18:58 Platelet Estimate Normal (NORMAL) 03/09/17 08:31 Large Platelets Present 03/09/17 08:31 RBC Morphology Normal 03/07/17 18:58 Poikilocytosis (manual Slight 03/08/17 07:17 Anisocytosis (manual) Slight 03/08/17 07:17 Ovalocytes Slight 03/08/17 07:17 PT 10.6 SECONDS (9.7-12.2) 03/07/17 18:58 INR 1.0 03/07/17 18:58 APTT 29 SECONDS (21-34) 03/07/17 18:58 Sodium 130 mmol/L (132-148) L 03/18/17 07:25 Potassium 4.0 mmol/L (3.6-5.2) 03/18/17 07:25 Chloride 96 mmol/L (98-107) L 03/18/17 07:25 Carbon Dioxide 27 mmol/L (22-30) 03/18/17 07:25 Anion Gap 12 (10-20) 03/18/17 07:25 BUN 16 mg/dL (9-20) 03/18/17 07:25 Creatinine 1.0 mg/dL (0.8-1.5) 03/18/17 07:25 Est GFR ( Amer) > 60 03/18/17 07:25 Est GFR (Non-Af Amer) > 60 03/18/17 07:25 POC Glucose (mg/dL) 224 mg/dL (65-110) H 03/18/17 12:00 Random Glucose 354 mg/dL (75-110) H 03/18/17 07:25 Hemoglobin A1c 9.5 % (4.2-6.5) H 03/18/17 07:25 Serum Osmolality 280 mosm/kg (272-300) 03/14/17 11:40 Uric Acid 2.2 mg/dL (3.5-8.5) L 03/14/17 16:47 Calcium 8.0 mg/dl (8.6-10.4) L 03/18/17 07:25 Total Bilirubin 0.3 mg/dL (0.2-1.3) 03/18/17 07:25 AST 17 U/L (17-59) D 03/18/17 07:25 ALT 31 U/L (21-72) 03/18/17 07:25 Alkaline Phosphatase 73 U/L (38-126) 03/18/17 07:25 Troponin I < 0.0120 ng/mL (0.00-0.120) 03/07/17 18:58 Total Protein 5.3 g/dL (6.3-8.3) L 03/18/17 07:25 Total Protein (PEP) 5.6 g/dL (6.1-8.1) L 03/16/17 17:22 Albumin 3.0 g/dL (3.5-5.0) L 03/18/17 07:25 Albumin (PEP) 3.3 g/dL (3.8-4.8) L 03/16/17 17:22 Globulin 2.4 gm/dL (2.2-3.9) 03/18/17 07:25 Albumin/Globulin Ratio 1.3 (1.0-2.1) 03/18/17 07:25 Fvggq-7-Alptuxrhj 0.2 g/dL (0.2-0.3) 03/16/17 17:22 Inmmy-4-Uutvjlzhv 0.7 g/dL (0.5-0.9) 03/16/17 17:22 Gooh-9-Kagjgcxu 0.4 g/dL (0.4-0.6) 03/16/17 17:22 Zlwj-7-Cfayovbl 0.4 g/dL (0.2-0.5) 03/16/17 17:22 Gamma Globulins 0.6 g/dL (0.8-1.7) L 03/16/17 17:22 Abnorm Protein Band 1 TEST NOT PERFORMED 03/16/17 17:22 Abnorm Protein Band 2 TEST NOT PERFORMED 03/16/17 17:22 Abnorm Protein Band 3 TEST NOT PERFORMED 03/16/17 17:22 Triglycerides 120 mg/dL (0-149) D 03/16/17 17:22 Cholesterol 137 mg/dL (0-199) 03/16/17 17:22 Lipase 60 U/L (23-300) 03/07/17 18:58 Carcinoembryonic Ag 2.1 ng/mL (0-3.0) 03/10/17 07:30 Procalcitonin < 0.05 NG/ML (0.19-0.49) L 03/08/17 09:22 Urine Color Straw (YELLOW) 03/07/17 22:49 Urine Clarity Hazy (Clear) 03/07/17 22:49 Urine pH 6.0 (5.0-8.0) 03/07/17 22:49 Ur Specific [place] 1.029 (1.003-1.030) 03/07/17 22:49 Urine Protein 2+ mg/dL (NEGATIVE) H 03/07/17 22:49 Urine Glucose (UA) 3+ mg/dL (Normal) H 03/07/17 22:49 Urine Ketones Negative mg/dL (NEGATIVE) 03/07/17 22:49 Urine Blood 1+ (NEGATIVE) H 03/07/17 22:49 Urine Nitrate Negative (NEGATIVE) 03/07/17 22:49 Urine Bilirubin Negative (NEGATIVE) 03/07/17 22:49 Urine Urobilinogen Normal mg/dL (0.2-1.0) 03/07/17 22:49 Ur Leukocyte Esterase 1+ Gabi/uL (Negative) H 03/07/17 22:49 Urine WBC (Auto) 10 /hpf (0-5) H 03/07/17 22:49 Urine RBC (Auto) 20 /hpf (0-3) H 03/07/17 22:49 Ur Squamous Epith Cells 2 /hpf (0-5) 03/07/17 22:49 Urine Bacteria Few (<OCC) H 03/07/17 22:49 Urine Osmolality 571 mosm/kg (300-1000) 03/14/17 14:46 Ur Random Sodium 75 mmol/L 03/14/17 14:46 Stool Occult Blood Positive (NEGATIVE) H 03/07/17 18:45 Stool Leukocytes, Qual Negative (NEGATIVE) 03/08/17 14:26 CHASE & SPEP Interp See note 03/16/17 17:22 C. difficile Ag & Toxin Negative (NEGATIVE) 03/08/17 14:26 Giardia Antigen Not detected (Not Detected) 03/08/17 14:23 Blood Type O POSITIVE 03/07/17 18:58 Antibody Screen Negative 03/07/17 18:58 Attending/Attestation - Attestation I have personally seen and examined this patient.: Yes I have fully participated in the care of the patient.: Yes I have reviewed all pertinent clinical information, including history, physical exam and plan: Yes Notes (Text): Patient is stable for discharge I agree with the documentation of the assessment and the plan Patient was told to follow clinic and take his medication out patient colonoscopy
[2017-03-18 17:22] LABS: BLOOD UREA NITROGEN 17 mg/dL (9-20); CALCIUM 8.4 mg/dl (8.6-10.4); GFR AFRICAN-AMERICAN > 60; GFR NON-AFRICAN AMERICAN > 60
[2017-03-18] MEDS: (Lantus) Insulin Glargine, Recombinant SC SCH (21:54)
[2017-03-19 08:15] LABS: BASO # 0.1 K/uL (0.0-0.2); BASO % 0.7 % (0.0-2.0); EOS # 0.3 K/uL (0.0-0.7); EOS % 3.3 % (0.0-4.0); HEMOGLOBIN 12.9 g/dL (12.0-18.0); LYMPH % 20.6 % (20.0-40.0); MEAN CELL VOLUME 89.2 fL (80.0-94.0); MEAN CORPUSCULAR HEMOGLOBIN 31.5 pg (27.0-31.0); MEAN CORPUSCULAR HGB CONC 35.3 g/dL (33.0-37.0); MEAN PLATELET VOLUME 10.8 fL (7.2-11.7); MONO # 0.6 K/uL (0.0-0.8); MONO % 5.6 % (0.0-10.0); NEUT # 6.8 K/uL (1.8-7.0); NEUT % 69.8 % (50.0-75.0); RBC 4.1 Mil/uL (4.40-5.90); RED CELL DISTRIBUTION WIDTH 14.6 % (11.5-14.5); WHITE BLOOD COUNT 9.8 K/uL (4.8-10.8)
[2017-03-19] MEDS: (Novolin R) Insulin Human Regular 100 units/ml vial SC SCH ×2 (08:26→12:50)
[2017-03-19 08:29] LABS: ALBUMIN 2.9 g/dL (3.5-5.0); ALT/SGPT 34 U/L (21-72); AST/SGOT 17 U/L (17-59); BLOOD UREA NITROGEN 15 mg/dL (9-20); CALCIUM 7.6 mg/dl (8.6-10.4); GFR AFRICAN-AMERICAN > 60; GFR NON-AFRICAN AMERICAN > 60
[2017-03-19 08:31] LABS: ALB/GLOB RATIO 1.1 (1.0-2.1)
[2017-03-19 09:09] VITALS: PULSE 79; TEMP 98; O2SAT 98
[2017-03-19 09:10] VITALS: BP 148/84
[2017-03-19] MEDS ORDERED: Influenza Vaccine 60 mcg/0.5 mL SYR (4YR UP) IM ONE (10:41)
--- NOTE | 2017-03-19 16:32 | CP.PCM.PN ---
Subjective - Date & Time of Evaluation Date of Evaluation: 03/19/17 Time of Evaluation: 10:00 - Subjective Subjective: no complain Objective - Vital Signs/Intake and Output Vital Signs (last 24 hours): Temp Pulse Resp BP Pulse Ox 98.0 F 79 20 148/84 98 03/19/17 09:07 03/19/17 09:07 03/19/17 09:07 03/19/17 09:07 03/19/17 09:07 Intake and Output: 03/19/17 03/19/17 06:59 18:59 Intake Total 480 Balance 480 - Labs Labs: 03/19/17 07:51 03/19/17 07:51 PT 10.6 SECONDS (9.7-12.2) 03/07/17 18:58 INR 1.0 03/07/17 18:58 APTT 29 SECONDS (21-34) 03/07/17 18:58 - Constitutional Appears: Non-toxic Assessment and Plan - Assessment and Plan (Free Text) Plan: Patient is stable for discharge D/W Dr Robins continue water restriction and continue his home meds Asked to follow medical clinic at [facility] Patient has insulin at home. Explainind about the need for a colonoscopy Please see the d/c summary done on 03/18/2017 Patient discharge this afternoon /03/19/2017
== END 2017-03-19 15:00 | disposition home or self-care (01) | DRG 179 ==
LOC: SUPCPDRO 17:58 → C.ER 17:58 → C.5S 21:55 → C.6T 03-12 19:41
PROVIDERS: ADMIT Hospitalist; ATTEND Internal Medicine
DX: K51.50 Left sided colitis without complications (principal); E11.40 Type 2 diabetes mellitus with diabetic neuropathy, unspecified; E22.2 Syndrome of inappropriate secretion of antidiuretic hormone; E11.65 Type 2 diabetes mellitus with hyperglycemia; E87.6 Hypokalemia; E78.5 Hyperlipidemia, unspecified; I10 Essential (primary) hypertension; Z79.84 Long term (current) use of oral hypoglycemic drugs; Z87.891 Personal history of nicotine dependence; Z86.73 Personal history of transient ischemic attack (TIA), and cerebral infarction without residual deficits

== ENCOUNTER 2017-08-26 09:17 | Day surgery (SDC) | payer OTHER ==
[2017-08-26 10:49] VITALS: BMI 27.9
[2017-08-26 11:07] VITALS: TEMP 97.5
[2017-08-26] MEDS ORDERED: Lactated Ringer's 1,000 ML IV ONE (11:35)
[2017-08-26] MEDS ORDERED: Propofol 10 mg/ml Inj (20 ML) ONE (11:39)
[2017-08-26] MEDS ORDERED: Lidocaine Hydrochloride 5 ML INJ ONE (11:39)
[2017-08-26 13:44] VITALS: PULSE 64
[2017-08-26 13:52] VITALS: BP 129/72; RESP 18; O2SAT 99
== END 2017-08-26 12:50 | disposition home or self-care (01) ==
LOC: C.ENDO 09:17
PROVIDERS: ATTEND Internal Medicine Gastroenterology
DX: Z12.11 Encounter for screening for malignant neoplasm of colon (principal)
CPT/HCPCS: 45378; 82948; J2704; J7120

== ENCOUNTER 2018-07-05 07:53 | Day surgery (SDC) | payer OTHER ==
[2018-07-05 08:31] VITALS: BMI 26.6
[2018-07-05] MEDS ORDERED: Sodium Chloride 0.9% 500 ML IV ONE (08:43)
[2018-07-05 08:50] VITALS: PULSE 74; RESP 20; TEMP 98.4; O2SAT 98
[2018-07-05] MEDS ORDERED: (Novolin R) Insulin Human Regular 100 units/ml vial IVP ONE (09:00)
[2018-07-05] MEDS ORDERED: Sodium Chloride 0.9% 1,000 ML IV ONE (09:15)
[2018-07-05] MEDS ORDERED: (Novolin R) Insulin Human Regular 100 units/ml vial SC ONE (09:20)
--- NOTE | 2018-07-05 10:16 | CP.SDSHP ---
Same Day Surgery H & P - History Proposed Procedure: EGD Pre-Op Diagnosis: hematemesis. chronic heartburn. epigastric pain - Previous Medical/Surgical History Cardiac: Hypertension, Other (hypercholesterolemia) Endocrine/Metabolic: Diabetes Previous Surgical History: Foot surgery - Allergies Allergies: Allergies No Known Allergies Allergy (Verified 07/05/18 08:30) - Physical Exam Vital Signs: Vital Signs 07/05/18 08:34 Temperature 98.4 F Pulse Rate 74 Respiratory 20 Rate Blood Pressure 133/72 O2 Sat by Pulse 98 Oximetry Mental Status: Alert & Oriented x3 Neuro: WNL Heart: WNL Lungs: WNL GI: WNL - Impression Impression: hematemesis. heartburn, chronic. epigastric pain Pt. Evaluated Today:Candidate for Anesthesia & Procedure: Yes - Date & Time Date: 07/05/18 Time: 10:16 Short Stay Discharge - Short Stay Discharge Admitting Diagnosis/Reason for Visit: HEMATEMESIS / HEARTBURN / NAUSEA-VOMITING Disposition: HOME/ ROUTINE
[2018-07-05] MEDS ORDERED: Propofol 10 mg/ml Inj (20 ML) ONE (10:19)
[2018-07-05] MEDS ORDERED: Lidocaine Hydrochloride 5 ML INJ ONE (10:20)
[2018-07-05] MEDS ORDERED: Pantoprazole 40 mg EC Tab PO ONE (10:30)
[2018-07-05 11:18] VITALS: BP 123/67
== END 2018-07-05 11:24 | disposition home or self-care (01) ==
LOC: C.ENDO 07:53
PROVIDERS: ATTEND Internal Medicine Gastroenterology
DX: K29.50 Unspecified chronic gastritis without bleeding (principal); K21.0 Gastro-esophageal reflux disease with esophagitis; K44.9 Diaphragmatic hernia without obstruction or gangrene; K92.0 Hematemesis; R12 Heartburn; E78.00 Pure hypercholesterolemia, unspecified; I10 Essential (primary) hypertension; E11.9 Type 2 diabetes mellitus without complications
CPT/HCPCS: 43239; 82948; 88305; 88312; 88342; J2001; J2704; J7030; J7040